=== PATIENT | male | born 1950 | race Caucasian/White ===

== ENCOUNTER 2019-04-24 00:58 | Inpatient (IN) | payer OTHER ==
[~2019-04-24] VITALS: Ht 177.8 cm; Wt 98.9 kg
[2019-04-24 00:58] VITALS: BP 150/69
[~2019-04-24 00:58] MED LIST: ASPI-1205 PO; CETI10TA71 PO; OXYC10TE14 PO; OXYC1TAB PO; PTU50 PO; WARF3TAB PO
--- NOTE | 2019-04-24 01:06 | NUR ---
PT BIB W/C TO ER BED 3
--- NOTE | 2019-04-24 01:10 | NUR ---
69 Y/O M BIB FAMILY FRIEND WITH C/O SOB AND LEG PAIN. 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 RALES AUSCULTATED. O2 SATURTION AT 95% RA. PT CHRONIC SMOKER, SMOKES 1-2 PACKS OF CIGARETTES DAILY. LEG PAIN STARTED 2 MONTHS AGO. OPEN WOUND NOTED TO LT OTOOLE MEASURING APPROXIMATELY 6CM X3 CM. WEEPING WOUNDS NOTED TO BLE. SKIN COOL TO TOUCH. PT PLACED IN GOWN AND ATTACHED TO MONITORING SYSTEM. BEDRAILS X2 UP. WILL CONTINUE TO MONITOR.
--- NOTE | 2019-04-24 01:15 | NUR ---
PT O2 SATURATION DROPPED TO 89%. PLACED ON 3L VIA NASAL CANNULA. O2 SATUATION AT 96%
[2019-04-24] MEDS ORDERED: NACL 0.9% 1,000 ML IV SCH (01:19)
[2019-04-24] MEDS ORDERED: cefTRIAXone 1,000 MG in DEXT 5% MINI-BAG PLUS 50 ML IV ONE (01:20)
[2019-04-24] MEDS ORDERED: MORPHINE SULFATE 4 MG/ML SYR IVP ONE (01:20)
--- NOTE | 2019-04-24 01:35 | NUR ---
EKG PERFORMED AT BEDSIDE
--- NOTE | 2019-04-24 01:38 | NUR ---
dr. austin bedside evaluating pt
--- NOTE | 2019-04-24 01:40 | NUR ---
BLOOD DRAWN AND WALKED TO LAB.
[2019-04-24] MEDS ORDERED: VERAPAMIL 5 MG/2 ML VIAL IVP ONE (01:45)
--- NOTE | 2019-04-24 01:45 | NUR ---
PT UNABLE TO PROVIDE URINE SPECIMEN AT THIS TIME. DR. AKHTAR MADE AWARE.
[2019-04-24] MEDS ORDERED: FUROSEMIDE 40 MG/4 ML VIAL IVP ONE (01:50)
[2019-04-24 02:03] LABS: RED CELL DISTRIBUTION WIDTH 24.4 % (11.6-13.7)
--- NOTE | 2019-04-24 02:15 | NUR ---
O2 SATURATION MAINTAINED AT 96% ON 3L VIA NC. WILL CONTINUE TO MONITOR
[2019-04-24] MEDS ORDERED: cefTRIAXone 1,000 MG VIAL ONE (02:16)
[2019-04-24 02:18] LABS: CARBON DIOXIDE 21.9 mmol/L (21-32); POTASSIUM 4.2 mmol/L (3.5-5.1)
[2019-04-24 02:19] LABS: ANION GAP 18.3 (8-16); CREATININE 1.4 mg/dL (0.7-1.3); TOTAL BILIRUBIN 1.2 mg/dL (0.0-1.0)
[2019-04-24 02:20] LABS: HEMATOCRIT 26.3 % (36-52); MEAN CORPUSCULAR HEMOGLOBIN 23 pg (27-31); MEAN CORPUSCULAR HGB CONC 31 g/dL (33-37); MEAN CORPUSCULAR VOLUME 76.4 fL (80-94); PLATELET COUNT (AUTO) 289 K/uL (140-450); RED BLOOD CELL COUNT(AUTO) 3.44 MIL/uL (4.20-6.10); WHITE BLOOD COUNT (AUTO) 11.8 K/uL (4.8-10.8)
[2019-04-24 02:21] LABS: BASOPHILS % (MANUAL) 1 % (0-2); EOSINOPHILS % (MANUAL) 0 % (0-4); LYMPHOCYTES % (MANUAL) 6 % (20-46); MONOCYTES % (MANUAL) 10 % (5-12)
--- NOTE | 2019-04-24 02:26 | NUR ---
LAB CALLED FOR CRITICAL LAB. LACTIC ACID 2.1. AWARE.
[2019-04-24] MEDS ORDERED: OMEP20TC12 PO (02:48)
[2019-04-24] MEDS ORDERED: FURO-570 PO (02:48)
[2019-04-24] MEDS ORDERED: POTA10TE30 PO (02:48)
[2019-04-24] MEDS ORDERED: CARV6.25 PO (02:48)
[2019-04-24] MEDS ORDERED: ATOR40TA PO (02:48)
--- NOTE | 2019-04-24 02:53 | NUR ---
RAD AT BEDSIDE.
--- NOTE | 2019-04-24 03:03 | NUR ---
URINE SPECIMEN COLLECTED.
--- NOTE | 2019-04-24 03:04 | NUR ---
PT C/O UNCHANGED PAIN. DR. AKHTAR NOTIFIED.
[2019-04-24] MEDS ORDERED: MORPHINE SULFATE 4 MG/ML SYR IM ONE (03:10)
[2019-04-24] MEDS ORDERED: DOCUSATE SODIUM 100 MG GELCAP PO PRN (03:25)
[2019-04-24] MEDS ORDERED: ONDANSETRON 4 MG/2 ML VIAL IM/IVP PRN (03:25)
[2019-04-24] MEDS ORDERED: ACETAMINOPHEN 325 MG TAB PO PRN (03:25)
[2019-04-24 03:30] LABS: APPEARANCE,URINE CLEAR (CLEAR); BILIRUBIN,URINE NEGATIVE (NEGATIVE); BLOOD, URINE NEGATIVE (NEGATIVE); COLOR,URINE YELLOW (YELLOW); LEUKOCYTE ESTERASE ,URINE NEGATIVE (NEGATIVE); NITRITE, URINE NEGATIVE (NEGATIVE); PH,URINE 5.5 (5.0-9.0); UGLUCOSE NEGATIVE (NEGATIVE)
[2019-04-24 03:40] LABS: BARBITURATE, URINE NEG. ng/ml (NEG <=200); BENZODIAZEPINE, URINE NEG. ng/mL (NEG <=200); CANNABINOID, URINE NEG. ng/mL (NEG <=50); COCAINE, URINE NEG. ng/mL (NEG <=300); OPIATE, URINE NEG. ng/mL (NEG <=2000); PHENCYCLIDINE SCREEN,URINE NEG. ng/mL (NEG <=25)
--- NOTE | 2019-04-24 03:45 | NUR ---
PT REPORTS DECREASED PAIN.
[2019-04-24 03:52] LABS: WBC,URINE 0-5 /HPF (0-5)
[2019-04-24 03:53] LABS: HYALINE CASTS, URINE 0-2 /LPF (None Seen); RBC,URINE 0-5 /HPF (0-5)
[2019-04-24] MEDS ORDERED: ALBUTEROL SULFATE/IPRATROPIU 3 ML SOL IH PRN (04:00)
[2019-04-24 04:01] LABS: CHOL/HDL RATIO 1.8 (1-4.5); MAGNESIUM 1.8 mg/dL (1.8-2.4); PHOSPHORUS 2.8 mg/dL (2.5-4.9); THYROID STIMULATING HORMONE 1.13 uIU/mL (0.34-3.74)
[2019-04-24 04:20] VITALS: BP 144/63
--- NOTE | 2019-04-24 04:20 | NUR ---
RECEIVED PT FROM ED; LUCILLE PALOMARES PT AWAKE ALERT ORIENTED X 4 BUT PT ANXIOUS DUE TO FEELING OF ITCHINESS ALL OVER BODY. PT SCREAMING IN PAIN, AND PHYSICALLY SCRATCHING HIMSELF.PT UNCOOPERATIVE. PT NOT A GOOD INFORMANT DUE TO ANXIETY. PLACED ON BED COMFORTABLY. MRSA SWAB DONE. PLACED ON FALL RISK. PT TRYING TO GET UP DUE TO ANXIETY.PLACED ON LOW BED.
--- NOTE | 2019-04-24 04:30 | NUR ---
Patient will be admitted to care of Dr. Saavedra. Admited to [facility]. Will go to room 123A. Belongings list completed. Report to GLENN York. Transfer of care at this time.
--- NOTE | 2019-04-24 05:00 | NUR ---
DR. KENT WAS AT BEDSIDE TO INTERVIEW PT, DID THE HISTORY AND PHYSICAL BUT BECAUSE OF ITCHINESS AND ANXIETY . I COULD NOT GET A GOOD INFORMATION ALSO ON THE PT JUST BITS ON INFORMATION BECAUSE OF ANXIETY.
--- NOTE | 2019-04-24 05:01 | NUR ---
DR. KENT AWARE OF ITCHINESS AND WILL ORDER MEDS. WILL CARRY IT OUT.
[2019-04-24] MEDS: NACL 0.9% 1,000 ML IV SCH (05:19)
--- NOTE | 2019-04-24 05:27 | NUR ---
GIVEN BENADRYL ORDERED SEVERE ITCHINESS NOTED
[2019-04-24] MEDS: MORPHINE SULFATE 2 MG/ML SYR IVP PRN ×2 (05:54→10:24)
--- NOTE | 2019-04-24 05:54 | NUR ---
DR. KENT WAS AT BEDSIDE WITH PT AND TALKED TO PT, ORDERED ME TO GIVE THE MORPHINE.CARRIED OUT VERBAL ORDER
[2019-04-24] MEDS ORDERED: diphenhydrAMINE 50 MG/ML VIAL IVP SCH (06:00)
--- NOTE | 2019-04-24 06:00 | NUR ---
DR. KWONG AND DR. KENT AGAIN AT BEDSIDE ASSESSING PATIENT. PATIENT TAKING OFF HIS CLOTHES. AND TAKING OFF THE WARDROBE COORDINATOR LEADS. INFORMED THE PT RISKS AND BENEFITS. ITCHINESS STILL PRESENT
[2019-04-24] MEDS: ALBUTEROL SULFATE/IPRATROPIU 3 ML SOL IH SCH ×3 (07:20→19:00)
--- NOTE | 2019-04-24 07:20 | NUR ---
PATIENT ENDORSED TO NEXT SHIFT FOR CONTINUITY OF CARE, PT HAD NO CLOTHES OWN, EXCEPT FOR A THIN SHEET ON HIS BODY,HE KEEPS TAKING OFF HIS GOWN AFTER WE FIX IT. PT STILL HAS ITCHINESS BUT HAS CALMED DOWN COMPARED EARLIER. NO ORDER FOR ISOLATION PLACED BY
--- NOTE | 2019-04-24 07:21 | NUR ---
RECEIVED REPORT FROM LUNCHROOM FOOD SERVICE SUPERVISOR NURSE. PATIENT LYING DOWN IN BED, COMPLAINS OF GENERALIZED ITCHING, O2 3L/MIN VIA NC ON BUT PATIENTS KEEPS TAKING IT OFF, KEEPS TAKING OFF GOWN, BLANKETS, AND TELE BOX. AAOX2, CONFUSED. IV SITE INTACT, PATENT AND INFUSING IVF PER MD ORDERS. REVIEWED PLAN OF CARE WITH PATIENT. UNABLE TO COMPREHEND. REINFORCEMENT NEEDED. SAFETY MEASURES IN PLACE, CALL LIGHT WITHIN REACH. WILL CONTINUE TO MONITOR.
[2019-04-24 08:00] VITALS: BP 165/74
[2019-04-24] MEDS ORDERED: LORazepam 2 MG/ML VIAL IM/IVP PRN (09:00)
[2019-04-24] MEDS ORDERED: FUROSEMIDE 40 MG/4 ML VIAL IVP SCH (09:00)
[2019-04-24] MEDS: CARVEDILOL 6.25 MG TAB PO SCH ×2 (10:24→21:16)
[2019-04-24] MEDS: ATORVASTATIN 20 MG TAB PO SCH (10:24)
--- NOTE | 2019-04-24 11:00 | NUR ---
PATIENT KEEPS REMOVED TELE BOX AND OXYGEN, MD AWARE. GETTING ULTRASOUND DONE. WILL CONTINUE TO MONITOR.
[2019-04-24] MEDS ORDERED: THERAHONEY GEL 42.5 GM TP SCH (11:25)
[2019-04-24] MEDS ORDERED: THERAHONEY GEL 42.5 GM TP PRN ×2 (11:25→11:35)
[2019-04-24 12:00] VITALS: BP 149/57
--- NOTE | 2019-04-24 13:00 | NUR ---
PATIENT PULLED OUT IV LINE. ECHOCARDIOGRAM BEING COMPLETED. WILL INSERT NEW IV LINE LATER.
[2019-04-24] MEDS ORDERED: MORPHINE SULFATE 2 MG/ML SYR IVP PRN (13:15)
--- NOTE | 2019-04-24 13:40 | NUR ---
PT IS COMBATIVE PULLING OUT IV AND YELLING AT STAFF NO HHN GIVEN
--- NOTE | 2019-04-24 14:19 | NUR ---
PATIENT HAS BEEN SCREENED AND CATEGORIZED MODERATE NUTRITION RISK. PATIENT WILL BE SEEN WITHIN 3-5 DAYS OF ADMISSION. 04/27/19 - 04/29/19 NAVI WARD MBA, RD
[2019-04-24 16:00] VITALS: BP 140/63
--- NOTE | 2019-04-24 16:00 | NUR ---
SPONGE BATH GIVEN. CONDITION UNCHANGED. WILL CONTINUE TO MONITOR.
--- NOTE | 2019-04-24 18:00 | NUR ---
NEW IV LINE INSERTED ON LEFT FOREARM #22 ON SECOND ATTEMPT. PATIENT TOLERATED WELL. WILL CONTINUE TO MONITOR.
--- NOTE | 2019-04-24 19:01 | NUR ---
went in the room to give patient a breathing tx. pt refused and claims hes sleepy. Sat 98%. on RA. b/s were clear. will cont. to monitor
--- NOTE | 2019-04-24 19:20 | NUR ---
RECEIVED BEDSIDE REPORT FROM DAY SHIFT NURSE. PATIENT IS SLEEPING AROUSABLE BY NAME AND TOUCH. RESPIRATION EVEN UNLABORED ON 3L O2 NC. NO DISTRESS NOTED. SKIN IS WARM AND DRY. IV PATENT AND INTACT. BILATERAL LOWER EXTREMITIES WOUND NOTED. PLAN OF CARE DISCUSSED. ALL SAFETY MEASURES IN PLACE. BED IS AT LOW POSITION. CALL LIGHT WITHIN REACH AND VERBALIZES ITS USE. WILL CONTINUE TO MONITOR.
--- NOTE | 2019-04-24 19:28 | NUR ---
GAVE REPORT TO TEST EQUIPMENT MECHANIC NURSE FOR CONTINUITY OF CARE. PATIENT IN STABLE CONDITION.
[2019-04-24 20:00] VITALS: BP 166/64
--- NOTE | 2019-04-24 20:00 | NUR ---
INITIAL ASSESSMENT DONE. VITALS WERE TAKEN. HELPED PATIENT CHANGED TO GOWN. PATIENT REFUSED TO PUT HIS OXYGEN MASK. EDUCATED THE RISK AND BENEFITS STILL REFUSED. WILL CONTINUE TO MONITOR.
[2019-04-24] MEDS: FUROSEMIDE 40 MG/4 ML VIAL IVP SCH (21:17)
--- NOTE | 2019-04-24 21:20 | NUR ---
ALL SCHEDULED MEDS WERE GIVEN PER ORDER. NO ASE NOTED. WILL CONTINUE TO MONITOR.
--- NOTE | 2019-04-24 22:37 | NUR ---
PATIENT WOKE UP FROM HUNGER. PROVIDED SANDWICH AND PUDDING. WILL CONTINUE TO MONITOR.
[2019-04-24] MEDS ORDERED: CLINDAMYCIN 600 MG/4 ML VIAL ONE (23:23)
[2019-04-24] MEDS: HYDROcodone/APAP 5/325 MG 1 TAB TAB PO PRN (23:31)
[2019-04-24] MEDS ORDERED: NACL 0.9% 500 ML IV SCH (23:55)
[2019-04-25] VITALS: BP 126/50
[2019-04-25] MEDS: CLINDAMYCIN 300 MG in DEXTROSE 5% 50 ML IV SCH ×2 (00:03→05:01)
[2019-04-25] MEDS ORDERED: cefTRIAXone 1,000 MG VIAL ONE (01:50)
--- NOTE | 2019-04-25 02:30 | NUR ---
CHECKED PATIENT. PATIENT SLEEPING RESPIRATION EVEN UNLABORED ON 2L NC O2. NO DISTRESS NOTED. WILL CONTINUE TO MONITOR.
[2019-04-25 04:00] VITALS: BP 141/61
[2019-04-25] MEDS: MORPHINE SULFATE 2 MG/ML SYR IVP PRN ×3 (04:00→17:46)
[2019-04-25] MEDS: NACL 0.9% 1,000 ML IV SCH (04:00)
--- NOTE | 2019-04-25 04:01 | NUR ---
PATIENT WOKE UP FROM PAIN 9/10. PATIENT IS MOANING AND RESTLESS. PRN PAIN MED ADMINISTERED PER ORDER. NO DISTRESS NOTED. VITALS TAKEN. PATIENT IN STABLE CONDITION WILL CONTINUE TO MONITOR
[2019-04-25] MEDS ORDERED: CLINDAMYCIN 600 MG/4 ML VIAL ONE (04:54)
--- NOTE | 2019-04-25 05:00 | NUR ---
PATIENT COMPLAINED OF ITCHINESS ALL OVER THE BODY. PRN BENADRYL GIVEN PER ORDER. WILL CONTINUE TO MONITOR
--- NOTE | 2019-04-25 07:16 | NUR ---
ENDORSED PATIENT IN DAY SHIFT NURSE. PATIENT IN STABLE CONDITION
--- NOTE | 2019-04-25 07:29 | NUR ---
RECEIVED BEDSIDE REPORT FROM PM RN PT APPEARS STABLE AND IN NO APPARENT DISTRESS. DISTRICT ATTORNEY AT BEDSIDE PERFORMING MORNING LAB DRAWS PT ON 2L 02 VIA NASAL CANULA. WILL CONTINUE TO MONITOR.
[2019-04-25] MEDS: ALBUTEROL SULFATE/IPRATROPIU 3 ML SOL IH SCH ×3 (07:32→20:22)
[2019-04-25 07:47] LABS: HEMATOCRIT 26.9 % (36-52); HEMOGLOBIN 8.2 g/dL (12.0-18.0); MEAN CORPUSCULAR HEMOGLOBIN 24 pg (27-31); MEAN CORPUSCULAR HGB CONC 30 g/dL (33-37); MEAN CORPUSCULAR VOLUME 77.6 fL (80-94); PLATELET COUNT (AUTO) 330 K/uL (140-450); RED BLOOD CELL COUNT(AUTO) 3.47 MIL/uL (4.20-6.10); RED CELL DISTRIBUTION WIDTH 24.5 % (11.6-13.7); WHITE BLOOD COUNT (AUTO) 8.8 K/uL (4.8-10.8)
[2019-04-25 07:50] LABS: ANION GAP 12.7 (8-16); CARBON DIOXIDE 26.9 mmol/L (21-32); CREATININE 1.5 mg/dL (0.7-1.3); POTASSIUM 3.6 mmol/L (3.5-5.1)
[2019-04-25 08:04] LABS: BASOPHILS % (MANUAL) 0 % (0-2); EOSINOPHILS % (MANUAL) 0 % (0-4); LYMPHOCYTES % (MANUAL) 7 % (20-46); MONOCYTES % (MANUAL) 16 % (5-12)
[2019-04-25 08:07] LABS: T4 (THYROXINE) 6.3 ug/dL (4.5-12.0)
[2019-04-25 08:45] VITALS: BP 122/47
[2019-04-25] MEDS: ATORVASTATIN 20 MG TAB PO SCH (08:58)
[2019-04-25] MEDS: CARVEDILOL 6.25 MG TAB PO SCH ×2 (08:58→20:55)
[2019-04-25] MEDS: FUROSEMIDE 40 MG/4 ML VIAL IVP SCH ×2 (08:58→20:56)
--- NOTE | 2019-04-25 09:15 | NUR ---
FREQUENT ROUNDING ON PT PT APPEARS STABLE AND IN NO APPARENT DISTRESS. ALL SAFETY MEASURES ARE IN PLACE WILL CONTINUE TO MONITOR.
[2019-04-25] MEDS ORDERED: CYCLOBENZAPRINE 10 MG TAB PO PRN (09:20)
--- NOTE | 2019-04-25 11:20 | NUR ---
FREQUENT ROUNDING ON PT PT APPEARS STABLE AND IN NO APPARENT DISTRESS. ALL SAFETY MEASURES ARE IN PLACE WILL CONTINUE TO MONITOR
--- NOTE | 2019-04-25 11:45 | NUR ---
podiatry md at bedside performing bilateral lower extremity wound care. pt awake in bed pt appears stable and in no apparent distress. all safety measures are in place will continue to monitor
[2019-04-25] MEDS ORDERED: PIPERACILLIN/TAZOBACTAM 3.375 GM in DEXTROSE 5% 50 ML IV SCH (12:00)
[2019-04-25 12:30] VITALS: BP 133/67
--- NOTE | 2019-04-25 13:10 | NUR ---
Licensed Psychologist Note: Basic Screen: Yes High Risk DC Screen Homeworth: PAMELA SHEN Home Relationship: ROOMMATE/FRIEND Pre-Admission Living Arrangements: Lives with Other Prior ADL Independent Current Home Health Name/Tel: N/A Current DME/02 Name/Tel: N/A Current Hospice Name/Tel: N/A Current Dialysis Name/Tel: N/A Healthcare Decision Maker: Patient Advance Directive No Patient/Family Have Educational Needs No Discipline: Case Mgt/Social Svcs Tentative Discharge Plan/Destination: No Needs Identified Will require assistance post discharge: No Referred to Tank Car Cleaner: No Tentative Discharge Plan Summary: Patient is a 69-year-old male admitted for CHF exacerbation. Patient has PMHX of congestive heart failure, atrial fibrillation, hypertension, and chronic venous ulcers. Patient was admitted from home. Patient was asleep when SW attempted to conduct assessment. SW contacted emergency contact/roommate Pamela Shen to complete assessment [phone]. Per Pamela, patient has no mental health history and no substance abuse history. Pamela stated that he moved in with patient, and patient's tentative discharge plan is to return home. No further needs identified. Signature: JUANI Bhatia Date: Apr 25, 2019 Time: 13:08
--- NOTE | 2019-04-25 13:46 | NUR ---
FREQUENT ROUNDING ON PT PT APPEARS STABLE AND IN NO APPARENT DISTRESS. ALL SAFETY MEASURES ARE IN PLACE WILL CONTINUE TO MONITOR.
--- NOTE | 2019-04-25 15:47 | NUR ---
PT SCRATCHED ARM WHILE AMBULATING THROUGHOUT HIS ROOM PT HAS 2.5CM SKIN TEAR ON RIGHT FOREARM. TOOK WOUND PHOTO AND CLEANED PLACED VERSATILE ON ARM.
[2019-04-25 16:45] VITALS: BP 145/68
--- NOTE | 2019-04-25 17:34 | NUR ---
FREQUENT ROUNDING ON PT PT APPEARS STABLE AND IN NO APPARENT DISTRESS. ALL SAFETY MEASURES ARE IN PLACE WILL CONITNUE TO MONITOR
[2019-04-25] MEDS: PIPERACILLIN/TAZOBACTAM 3.375 GM in DEXTROSE 5% 50 ML IV SCH ×2 (17:45→23:54)
--- NOTE | 2019-04-25 19:28 | NUR ---
ENDORSED PT TO PM RN PT APPEARS STABLE AND IN NO APPARENT DISTRESS. ALL SAFETY MEASURES ARE IN PLACE. PT ON 2L 02 VIA NASAL CANULA. PT IVF INFUSING IV SITE INFUSING IV SITE PATENT SHOWS NO SIGNS OF INFILTRATION OR INFLAMMATION.
--- NOTE | 2019-04-25 19:30 | NUR ---
RECEIVED PT IN STABLE CONDITION FROM AM NURSE FOR CONTINUITY OF CARE. AWAKE,ALERT AND ORIENTED X4. REFUSED TELE MONITOR AT THIS TIME. SITTING ,STANDING ALTERNATELY IN THE ROOM. WITH IVF INFUSING WELL ON THE LT AC #20. CLEAR AND PATENT. BOTH LOWER LEG WITH DRESSING ON. FREQ ROUNDS NEEDED. BED ON LOW POSITION AND CALL LIGHT PLACED WITHIN EASY REACH. WILL CONTINUE TO MONITOR.
[2019-04-25 20:00] VITALS: BP 145/44
--- NOTE | 2019-04-25 20:22 | NUR ---
PATIENT REFUSED BREATHING TREATMENT AND ASSESSMENT AT THIS TIME. NO ACUTE RESPIRATORY DISTRESS NOTED. WILL CONTINUE TO MONITOR.
--- NOTE | 2019-04-25 21:00 | NUR ---
PT HAS BEEN GETTING UP GOING TO THE BATHROOM. NEEDS ATTENDED. DUE MEDS TO BE GIVEN TO PT.
--- NOTE | 2019-04-25 22:30 | NUR ---
ABLE TO CONNECT TELE MONITOR TO PT. - CONTROLLED A FIB.
[2019-04-25] MEDS: HYDROcodone/APAP 5/325 MG 1 TAB TAB PO PRN (22:39)
--- NOTE | 2019-04-26 | NUR ---
PT REFUSED TO HAVE VITAL SIGNS TAKEN AND TO CONTINUE THE TELE MONITOR. HE SAID HE WANTS TO GO TO SLEEP.
[2019-04-26] MEDS: MORPHINE SULFATE 2 MG/ML SYR IVP PRN ×2 (01:25→09:24)
--- NOTE | 2019-04-26 02:10 | NUR ---
IV ACCESS LT FA G#20 INFILTRATED. DISCONTINUED. THEN A NEW IV ACCESS STARTED ON THE RT WRIST g22. CLEAR AND PATENT.
--- NOTE | 2019-04-26 02:40 | NUR ---
P[T REMOVED DRESSING ON BOTH LEGS. DRESSING CHANGED PER INSTRUCTION WITH THERA HONEY ON LT LEG.
[2019-04-26] MEDS: NACL 0.9% 1,000 ML IV SCH (02:58)
--- NOTE | 2019-04-26 04:00 | NUR ---
PT REFUSED TELE MONITOR AND VITAL SIGNS . DR. BRADLEY ,RESIDENT ON DUTY MADE AWARE.
--- NOTE | 2019-04-26 04:50 | NUR ---
PT SLEEPING WELL FINALLY AT THIS TIME. WILL CONTINUE TO MONITOR.
[2019-04-26] MEDS: PIPERACILLIN/TAZOBACTAM 3.375 GM in DEXTROSE 5% 50 ML IV SCH (05:35)
--- NOTE | 2019-04-26 06:15 | NUR ---
HS BEEN GETTING UP TO THE BATHROOM USING CANE WITH STANDBY ASSIST. INSTRUCTED TO ALWAYS CALL BEFORE GETTING UP DUE TO HIS WEAKNESS FROM THE LEG PAIN. NEEDS REINFORCEMENT.
[2019-04-26] MEDS: HYDROcodone/APAP 5/325 MG 1 TAB TAB PO PRN (06:36)
[2019-04-26 06:45] LABS: ANION GAP 12.3 (8-16); CARBON DIOXIDE 26.8 mmol/L (21-32); CREATININE 1.5 mg/dL (0.7-1.3); POTASSIUM 3.1 mmol/L (3.5-5.1)
[2019-04-26] MEDS: ALBUTEROL SULFATE/IPRATROPIU 3 ML SOL IH SCH (06:49)
[2019-04-26 06:58] LABS: BASOPHILS # (AUTO) 0.1 K/uL (0.00-0.22); BASOPHILS % (AUTO) 1.1 % (0.0-2.0); EOSINOPHILS % (AUTO) 0.4 % (0.0-4.0); HEMOGLOBIN 7.6 g/dL (12.0-18.0); LYMPHOCYTES # (AUTO) 0.8 K/uL (2.0-11.5); LYMPHOCYTES % (AUTO) 8.4 % (20.5-51.1); MEAN CORPUSCULAR HEMOGLOBIN 24 pg (27-31); MEAN CORPUSCULAR HGB CONC 32 g/dL (33-37); MEAN CORPUSCULAR VOLUME 76.4 fL (80-94); MONOCYTES # (AUTO) 1.9 K/uL (0.8-1.0); MONOCYTES % (AUTO) 21.6 % (1.7-9.3); NEUTROPHILS # (AUTO) 6.2 K/uL (1.8-7.7); NEUTROPHILS % (AUTO) 68.5 % (42.2-75.2); PLATELET COUNT (AUTO) 262 K/uL (140-450); RED BLOOD CELL COUNT(AUTO) 3.14 MIL/uL (4.20-6.10); RED CELL DISTRIBUTION WIDTH 23.8 % (11.6-13.7)
--- NOTE | 2019-04-26 07:10 | NUR ---
RECEIVED BEDSIDE SHIFT REPORT, PATIENT IS SLEEPING IN BED, IN STABLE CONDITION AT THIS TIME.
--- NOTE | 2019-04-26 07:11 | NUR ---
RECEIVED BEDSIDE SHIFT REPORT, PATIENT IS SLEEPING IN BED, IN STABLE CONDITION AT THIS TIME.
--- NOTE | 2019-04-26 07:11 | NUR ---
ENDORSED PT IN STABLE CONDITION TO AM NURSE FOR CONTINUITY OF CARE.
[2019-04-26] MEDS: ATORVASTATIN 20 MG TAB PO SCH (09:12)
[2019-04-26] MEDS: CARVEDILOL 6.25 MG TAB PO SCH (09:12)
[2019-04-26] MEDS: FUROSEMIDE 40 MG/4 ML VIAL IVP SCH (09:13)
--- NOTE | 2019-04-26 09:15 | NUR ---
PATIENT REQUESTING TO LEAVE HOSPITAL, STATES THE DOCTORS CAME AND SAID HE WAS GOING ON, PATIENT WALKING DOWN THE FOX, PATIENT ASSISTED BACK IN TO HIS ROOM AND EDUCATED ON FALL RISK SAFETY, PATIENT REQUESTING TO SIT IN A NEAR BY CHAIR TO WAIT FOR ME TO DO DISCHARGE FORMS.
[2019-04-26] MEDS: POTASSIUM CHLORIDE 10 MEQ TABER PO SCH ×2 (09:16→10:49)
--- NOTE | 2019-04-26 09:25 | NUR ---
ACKNOWLEDGED DISCHARGE ORDER FROM DR MYERS, DISCHARGE FORMS WILL BE COMPLETED AT THIS TIME. PATIENT IN STABLE CONDITION SITTING IN A CHAIR NEAR HIS ROOM (DOORWAY).
--- NOTE | 2019-04-26 11:15 | NUR ---
LABS AT THE BEDSIDE, TO DO A REPEAT BMP FOR POTASSIUM LEVELS. PATIENT YELLING FROM HIS ROOM REQUESTING TO LEAVE THE HOSPITAL. PATIENT PROVIDED COFFEE AND STATES HE WILL WAIT FOR ONLY 10 MINS. PATIENT DRESSED AND READY FOR DISCHARGE.
--- NOTE | 2019-04-26 11:20 | NUR ---
PATIENT EDUCATED ON DISCHARGE INSTRUCTIONS, PATIENT VERBALIZED UNDERSTANDING OF PLAN OF CARE, DISCHARGED FORMS WERE SIGNED AT THIS TIME.
--- NOTE | 2019-04-26 11:25 | NUR ---
PATIENTS ROOM MATE HERE TO LOCOMOTIVE OPERATOR PATIENT, PATIENT GATHERED HIS BELONGINGS, ALREADY CHANGED, ID BAND WITH DISCONTINUED AT THIS TIME. IV WAS ALSO DISCONTINUED AND REMOVED WITH LUMEN IN TACT, NO BLEEDING, REDNESS OR SWELLING NOTED. ALL QUESTIONS PERTAINING TO HIS CARE WAS ANSWERED. POTASSIUM LEVELS NORMAL AT THIS TIME, PATIENT IS STABLE, GAIT IS UNSTEADY AND ASSISTED INTO A WHEELCHAIR TO BE ESCORTED TO THE LOBBY, PATIENT WAS DISCHARGED AT THIS TIME.
[2019-04-26 11:55] LABS: ANION GAP 13.7 (8-16); CARBON DIOXIDE 24.4 mmol/L (21-32); CREATININE 1.4 mg/dL (0.7-1.3); POTASSIUM 4.1 mmol/L (3.5-5.1)
== END 2019-04-26 11:40 | disposition home or self-care (01) | DRG 291 ==
LOC: MED 00:58 → MTU 03:24
PROVIDERS: ADMIT General Practice; ATTEND General Practice
DX: I11.0 Hypertensive heart disease with heart failure (principal); N17.0 Acute kidney failure with tubular necrosis; J98.11 Atelectasis; L97.929 Non-pressure chronic ulcer of unspecified part of left lower leg with unspecified severity; E87.1 Hypo-osmolality and hyponatremia; E87.6 Hypokalemia; F19.10 Other psychoactive substance abuse, uncomplicated; E66.9 Obesity, unspecified; I48.91 Unspecified atrial fibrillation; F15.10 Other stimulant abuse, uncomplicated; I50.43 Acute on chronic combined systolic (congestive) and diastolic (congestive) heart failure; F17.210 Nicotine dependence, cigarettes, uncomplicated; I49.3 Ventricular premature depolarization; I45.10 Unspecified right bundle-branch block; E78.5 Hyperlipidemia, unspecified; I73.9 Peripheral vascular disease, unspecified; I87.2 Venous insufficiency (chronic) (peripheral); Z79.899 Other long term (current) drug therapy; Z79.82 Long term (current) use of aspirin; Z91.14 Patient's other noncompliance with medication regimen; Z68.31 Body mass index [BMI] 31.0-31.9, adult
CPT/HCPCS: 36415; 36600; 71045; 73590; 73620; 76881; 80048; 80053; 80305; 81001; 82550; 82803; 83036; 83605; 83735; 83880; 84100; 84436; 84443; 84484; 85025; 87040; 87070; 87075; 87081; 87086; 87186; 87205; 93005; 93925; 93970; 94640; 96365; 96375; 96376; 99285; A4649; C1758; J0696; J1200; J1644; J1940; J2270; J2543; J3490; J7030; J7060; J7620; Q0092; Q0163

== ENCOUNTER 2019-05-15 18:53 | Inpatient (IN) | payer OTHER ==
[~2019-05-15] VITALS: Ht 170.2 cm; Wt 101.6 kg
[~2019-05-15 18:53] MED LIST changes: -ASPI-1205 PO; +ATOR40TA PO; +CARV6.25 PO; +FURO-570 PO; +OMEP20TC12 PO; -OXYC10TE14 PO; -OXYC1TAB PO; +POTA10TE30 PO; -PTU50 PO; -WARF3TAB PO
[2019-05-15 18:56] VITALS: BP 127/73
--- NOTE | 2019-05-15 19:00 | NUR ---
69 Y/O MALE PRESENTS TO ED, POPEYE FROM HOME. C/O SOB AND DIFFICULTY BREATHING. PT HAS HX OF CHF, PLACED ON 5 L OF O2 VIA NC. PT SPO2 AT 97%. PT COMPLIANT WITH LASIX AT HOME. PT STATES HAVING CHEST PAIN RELATED TO SOB. +1 PITTING EDEMA NOTED ON ALL EXTREMITIES. PT HAS WOUND ULCERS ON BILAT LOWER EXTREMITY. PT C/O PAIN ON GENITAL REGION. PT STATES PAIN IS 10/10. PLACED ON MONITOR. ERMD MADE AWARE. WILL CONTINUE TO MONITOR.
[2019-05-15] MEDS ORDERED: FUROSEMIDE 40 MG/4 ML VIAL IVP ONE (19:15)
[2019-05-15] MEDS ORDERED: cefTRIAXone 1,000 MG in DEXT 5% MINI-BAG PLUS 50 ML IV ONE (19:15)
[2019-05-15] MEDS ORDERED: cefTRIAXone 1,000 MG VIAL ONE (19:24)
--- NOTE | 2019-05-15 20:05 | NUR ---
URINE COLLECTED AND SENT TO LAB AT THIS TIME
[2019-05-15 20:08] LABS: EOSINOPHILS % (AUTO) 0.2 % (0.0-4.0); LYMPHOCYTES # (AUTO) 0.9 K/uL (2.0-11.5); LYMPHOCYTES % (AUTO) 5.1 % (20.5-51.1); MEAN CORPUSCULAR HEMOGLOBIN 23 pg (27-31); MEAN CORPUSCULAR HGB CONC 30 g/dL (33-37); MEAN CORPUSCULAR VOLUME 76.8 fL (80-94); MONOCYTES % (AUTO) 11.5 % (1.7-9.3); NEUTROPHILS # (AUTO) 14.6 K/uL (1.8-7.7); NEUTROPHILS % (AUTO) 83.2 % (42.2-75.2); PLATELET COUNT (AUTO) 197 K/uL (140-450); RED CELL DISTRIBUTION WIDTH 24.2 % (11.6-13.7); WHITE BLOOD COUNT (AUTO) 17.6 K/uL (4.8-10.8)
[2019-05-15 20:09] LABS: CARBON DIOXIDE 28.9 mmol/L (21-32); CREATININE 1.2 mg/dL (0.7-1.3); POTASSIUM 3.9 mmol/L (3.5-5.1)
[2019-05-15 20:13] LABS: HEMOGLOBIN 6.8 g/dL (12.0-18.0)
[2019-05-15 20:24] LABS: ALBUMIN 2.8 g/dL (3.4-5.0); TOTAL BILIRUBIN 1.3 mg/dL (0.0-1.0)
--- NOTE | 2019-05-15 20:43 | NUR ---
BLEEDING NOTED ON LEFT LEG ULCER. BLEEDING CONTROLLED BY GAUZE. ERMD AWARE. WILL CONTINUE TO MONITOR.
[2019-05-15] MEDS ORDERED: MORPHINE SULFATE 4 MG/ML SYR IVP ONE (20:50)
[2019-05-15] MEDS ORDERED: NACL 0.9% 1,000 ML IV SCH (21:11)
[2019-05-15] MEDS ORDERED: ONDANSETRON 4 MG/2 ML VIAL IM/IVP PRN (21:15)
[2019-05-15] MEDS ORDERED: ACETAMINOPHEN 325 MG TAB PO PRN (21:15)
[2019-05-15] MEDS ORDERED: DOCUSATE SODIUM 100 MG GELCAP PO PRN (21:15)
[2019-05-15] MEDS ORDERED: MORPHINE SULFATE 2 MG/ML SYR IVP PRN (21:15)
[2019-05-15 21:39] LABS: APPEARANCE,URINE CLEAR (CLEAR); BILIRUBIN,URINE NEGATIVE (NEGATIVE); BLOOD, URINE NEGATIVE (NEGATIVE); COLOR,URINE YELLOW (YELLOW); LEUKOCYTE ESTERASE ,URINE NEGATIVE (NEGATIVE); NITRITE, URINE NEGATIVE (NEGATIVE); UGLUCOSE NEGATIVE (NEGATIVE)
[2019-05-15 21:48] LABS: BARBITURATE, URINE NEG. ng/ml (NEG <=200); BENZODIAZEPINE, URINE NEG. ng/mL (NEG <=200); CANNABINOID, URINE NEG. ng/mL (NEG <=50); COCAINE, URINE NEG. ng/mL (NEG <=300); OPIATE, URINE NEG. ng/mL (NEG <=2000); PHENCYCLIDINE SCREEN,URINE NEG. ng/mL (NEG <=25)
--- NOTE | 2019-05-15 22:00 | NUR ---
RECEIVED REPORT FROM ED RN FOR PT'S CONTINUITY OF CARE. PT IS AAOX4, IS ON RETREADER, AFIB ON TELE, ON 5L O2 OXYMIZER, HAS RIGHT AC 22G SALINE LOCK, HAS BLE +1 PITTING EDEMA, BLE ULCERS/POSS CELLULITIS, LEFT ARM SKIN TEARS, PHOTOGRAPHS TAKEN AND CHARTED. PT SCREAMING AND YELLING, C/O SEVERE BLE PAIN. ORIENTED PT TO HEEL COVERER ROUTINE, AND PLAN OF CARE. PT VERBALIZED UNDERSTANDING. SAFETY MEASURES IN PLACE, AND CALL LIGHT IS WITHIN REACH. WILL MONITOR PT THROUGHOUT SHIFT.
--- NOTE | 2019-05-15 22:00 | NUR ---
PT ADMITTED TO [facility] RM 127B. [place] [facility], STABLE CONDITION. REPORT GIVEN TO F[place] ELIZABETH. TRANSFER OF CARE AT THIS TIME.
[2019-05-15 22:05] VITALS: BP 134/70
[2019-05-15 22:12] LABS: FREE T4 (FREE THYROXINE) 1.09 ng/dL (0.76-1.46); MAGNESIUM 2.1 mg/dL (1.8-2.4); PHOSPHORUS 2.9 mg/dL (2.5-4.9); THYROID STIMULATING HORMONE 1.12 uIU/mL (0.34-3.74)
[2019-05-15 22:18] LABS: PROTHROMBIN TIME 13.2 secs (10.8-13.4)
[2019-05-15] MEDS: ACETAMINOPHEN 325 MG TAB PO SCH (23:23)
[2019-05-15] MEDS: MORPHINE SULFATE 2 MG/ML SYR IVP PRN (23:23)
--- NOTE | 2019-05-15 23:23 | NUR ---
ADMINISTERED SCHEDULED AND IVP PRN PAIN MEDICATIONS ORDERED, PRIOR TO BLOOD TRANSFUSION.
--- NOTE | 2019-05-15 23:25 | NUR ---
PRBC STARTED. PT TOLERATING IT WELL, NO REACTION NOTED. CXR AND XRAY OF TIBIA AND FIBULA DONE AT BEDSIDE. WILL CONTINUE TO MONITOR PT.
[2019-05-16] VITALS: BP 141/59
[2019-05-16] MEDS ORDERED: CARVEDILOL 6.25 MG TAB PO SCH
--- NOTE | 2019-05-16 00:15 | NUR ---
NEW IV INSERT: RIGHT WRIST 22G. RIGHT AC INFILTRATED.
--- NOTE | 2019-05-16 02:15 | NUR ---
PRBC TRANSFUSION ENDED. NO REACTION NOTED FROM TRANSFUSION. PT C/O SEVERE BLE PAIN, WILL MEDICATE PT.
[2019-05-16] MEDS ORDERED: FUROSEMIDE 20 MG TAB PO SCH ×2 (02:40)
[2019-05-16] MEDS: MORPHINE SULFATE 2 MG/ML SYR IVP PRN ×4 (03:09→21:07)
[2019-05-16] MEDS: LEVOFLOXACIN 750 MG/D5W PREMIX 150 ML IV SCH (03:09)
[2019-05-16] MEDS: ACETAMINOPHEN 325 MG TAB PO SCH ×3 (03:09→12:00)
--- NOTE | 2019-05-16 03:10 | NUR ---
ADMINISTERED SCHEDULED AND IVP PAIN MEDICATIONS ORDERED. PT TEACHING GIVEN. PT INTERMITTENTLY C/O SEVERE BLE PAIN.
[2019-05-16 04:00] VITALS: BP 130/78
[2019-05-16 04:11] LABS: HEMATOCRIT 21.8 % (36-52); MEAN CORPUSCULAR HEMOGLOBIN 24 pg (27-31); MEAN CORPUSCULAR HGB CONC 31 g/dL (33-37); MEAN CORPUSCULAR VOLUME 76.9 fL (80-94); PLATELET COUNT (AUTO) 161 K/uL (140-450); RED BLOOD CELL COUNT(AUTO) 2.83 MIL/uL (4.20-6.10); RED CELL DISTRIBUTION WIDTH 24.2 % (11.6-13.7); WHITE BLOOD COUNT (AUTO) 18.3 K/uL (4.8-10.8)
[2019-05-16 04:21] LABS: ANION GAP 6.5 (8-16); CARBON DIOXIDE 30.3 mmol/L (21-32); CREATININE 1.2 mg/dL (0.7-1.3); POTASSIUM 3.8 mmol/L (3.5-5.1)
--- NOTE | 2019-05-16 04:30 | NUR ---
RECEIVED CALL FROM [facility] (LAB), HGB 6.6, HCT 21.8. NOTIFIED MD, WILL ORDER ANOTHER UNIT OF PRBC.
[2019-05-16 04:31] LABS: HEMOGLOBIN 6.6 g/dL (12.0-18.0)
[2019-05-16 04:36] LABS: EOSINOPHILS % (MANUAL) 1 % (0-4); LYMPHOCYTES % (MANUAL) 8 % (20-46); MONOCYTES % (MANUAL) 13 % (5-12)
--- NOTE | 2019-05-16 04:55 | NUR ---
PT CURRENTLY SLEEPING WITH NO MORE INTERMITTENT SCREAMING IN PAIN. PT WAS CHANGED AND MADE COMFORTABLE AT 0430. AWAITING FROM LAB FOR THE AVAILABILITY OF THE NEXT PRBC UNIT.
--- NOTE | 2019-05-16 06:00 | NUR ---
CALLED LAB FOR 2ND UNIT OF PRBC UPDATE. PER LAB STAFF, THEY ARE STILL WORKING ON IT. MD AND ACCOUNTS PAYABLE TECHNICIAN AWARE.
--- NOTE | 2019-05-16 06:30 | NUR ---
PATIENT HAS BEEN SCREENED AND CATEGORIZED HIGH NUTRITION RISK. PATIENT WILL BE SEEN WITHIN 1-2 DAYS OF ADMISSION. 05/16/19-05/17/19 SANDIP GONZALEZ MS, RDN
--- NOTE | 2019-05-16 06:50 | NUR ---
MADAY FROM LAB CALLED TO INFORM PRBC 2ND UNIT IS READY. WILL ENDORSE TO AM SHIFT RN.
--- NOTE | 2019-05-16 07:46 | NUR ---
RECEIVED BEDSIDE REPORT FROM PM RN PT AWAKE IN BED PT APPEARS STABLE AND IN NO APPARENT DISTRESS. ALL SAFETY MEASURES ARE IN PLACE WILL CONTINUE TO MONITOR PT ON 3L 02 VIA OXIMIZER
[2019-05-16 08:15] VITALS: BP 113/59
[2019-05-16] MEDS: FUROSEMIDE 40 MG/4 ML VIAL IVP SCH (08:25)
[2019-05-16] MEDS: LACTOBACILLUS RHAMNOSUS GG 1 EACH CAP PO SCH (08:26)
[2019-05-16] MEDS: CARVEDILOL 6.25 MG TAB PO SCH ×2 (08:26→20:57)
[2019-05-16] MEDS: HYDROcodone/APAP 7.5/325 MG 1 TAB PO PRN (08:26)
[2019-05-16] MEDS: PANTOPRAZOLE 40 MG TABEC PO SCH (08:27)
[2019-05-16] MEDS ORDERED: PANTOPRAZOLE 40 MG TABEC PO SCH (09:00)
--- NOTE | 2019-05-16 09:00 | NUR ---
BLOOD TRANSFUSION STARTED PT AWAKE AND ALERT X4. PT ON TELE MONITORING. PT ON 5L 02 OXIMIZER. ALL SAFETY MEASURES ARE IN PLACE WILL CONTINUE TO MONITOR. PRE TRANSFUSION MEDICATIONS ADMINISTERED
--- NOTE | 2019-05-16 11:34 | NUR ---
SOCK DRIER AT BEDSIDE. PERFORMED WOUND ASSESSMENT. CANCELED ULTRASOUND VASCULAR OF BILATERAL LOWER EXTREMITIES SHE STATED HE HAD ONE 1 MONTH AGO AND WE DONT NEED ANOTHER
--- NOTE | 2019-05-16 11:48 | NUR ---
DISCHARGE PLANNING: A 69 Y/O MALE PATIENT FROM HOME, WHO CAME IN DUE TO SOB X 1 DAY. PAST MEDICAL HISTORY INCLUDE HTN, CHF AND A FIB. INITIAL DIAGNOSIS OF CHF EXACERBATION. CURRENT LABS INCLUDE WBC 18.3, H/H 6.6/21.8, NA/K 136/3.8, BUN/CREA 16/1.2. ON LEVAQUIN IV. CXR ON ADMISSION SHOWED ILD INTERSTITIAL PULMONARY EDEMA AND TRACE BILATERAL PLEURAL EFFUSIONS. CONSULT WITH DR Suzan LOMAS FOR CHF AND A FIB. BLOOD AND URINE C/S PENDING. DC PLAN TO HOME ONCE STABLE. Addendum: 05/17/19 at 1218 by Nohelia Munoz CM CURRENT LABS INCLUDE WBC 21.3, H/H 7.3/23.5, NA/K 137/3.9. UPPER EXTREMITY U/S AND VENOUS DOPPLER SHOWED NO DVT. LEG WOUND C/S PENDING. CARDIO AND PODIATRY CONSULTS IN PLACE. STILL ON LEVAQUIN. DC PLAN PENDING ON PATIENT'S RESPONSE TO TREATMENT. Addendum: 05/18/19 at 1617 by Nohelia Munoz CM STILL ON ZOSYN. U/S OF SCROTAL AREA PENDING. PSYCH, CARDIO AND PODIATRY CONSULT IN PLACE. DC PLAN PENDING ON PATIENT'S RESPONSE TO TREATMENT.
--- NOTE | 2019-05-16 12:08 | NUR ---
HELD 1200 TYLENOL AND BENADRYL PT HAD PRE TRANSFUSION MEDICATIONS AT 0840 PT DOES NOT NEED ANOTHER
--- NOTE | 2019-05-16 12:10 | NUR ---
PT TAKEN OFF UNIT TO OR FOR PROCEDURE Addendum: 05/16/19 at 1211 by Leydi Herrera RN ERROR WRONG PT
[2019-05-16 12:30] VITALS: BP 115/56
--- NOTE | 2019-05-16 12:45 | NUR ---
BLOOD TRANSFUSION COMPLETE PT AWAKE AND ALERT PT APPEARS STABLE AND IN NO APPARENT DISTRESS. ALL SAFETY MEASURES ARE IN PLACE PT IS ON TELE WILL CONTINUE TO MONITOR.
[2019-05-16] MEDS: ALBUTEROL SULFATE/IPRATROPIU 3 ML SOL IH PRN ×2 (13:05→20:34)
--- NOTE | 2019-05-16 13:46 | NUR ---
FREQUENT ROUNDING ON PT PT APPEAR STABLE AND IN NO APPARENT DISTRESS, ALL SAFETY MEASURES ARE IN PLACE WILL CONTINUE TO MONITOR
--- NOTE | 2019-05-16 15:34 | NUR ---
FREQUENT ROUNDING ON PT PT APPEARS STABLE AND IN NO APPARENT DISTRESS. ALL SAFETY MEASURES ARE IN PLACE. WILL CONTINUE TO MONITOR
[2019-05-16 16:43] VITALS: BP 121/66
[2019-05-16 17:27] LABS: BASOPHILS # (AUTO) 0.1 K/uL (0.00-0.22); BASOPHILS % (AUTO) 0.4 % (0.0-2.0); EOSINOPHILS # (AUTO) 0.2 K/uL (0-0.4); EOSINOPHILS % (AUTO) 1.1 % (0.0-4.0); HEMATOCRIT 25.4 % (36-52); HEMOGLOBIN 7.9 g/dL (12.0-18.0); LYMPHOCYTES # (AUTO) 0.8 K/uL (2.0-11.5); LYMPHOCYTES % (AUTO) 4.5 % (20.5-51.1); MEAN CORPUSCULAR HEMOGLOBIN 25 pg (27-31); MEAN CORPUSCULAR HGB CONC 31 g/dL (33-37); MONOCYTES # (AUTO) 2.1 K/uL (0.8-1.0); MONOCYTES % (AUTO) 11.8 % (1.7-9.3); NEUTROPHILS # (AUTO) 14.5 K/uL (1.8-7.7); NEUTROPHILS % (AUTO) 82.2 % (42.2-75.2); PLATELET COUNT (AUTO) 135 K/uL (140-450); RED BLOOD CELL COUNT(AUTO) 3.21 MIL/uL (4.20-6.10); RED CELL DISTRIBUTION WIDTH 23.7 % (11.6-13.7); WHITE BLOOD COUNT (AUTO) 17.7 K/uL (4.8-10.8)
--- NOTE | 2019-05-16 17:46 | NUR ---
FREQUENT ROUNDING ON PT PT APPEARS STABLE AND IN NO APPARENT DISTRESS. ALL SAFETY MEASURES ARE IN PLACE WILL CONTINUE TO MONITOR
--- NOTE | 2019-05-16 19:26 | NUR ---
ENDORSED PT TO PM RN PT AWAKE IN BED PT ON TELE MONITORING. PT ON 7L 02 VIA OXIMIZER IVF INFUSING. ALL SAFETY MEASURES ARE IN PLACE CALL LIGHT WITHIN REACH
--- NOTE | 2019-05-16 19:28 | NUR ---
RECEIVED PATIENT FROM AM SHIFT NURSE ANTOINETTE IN STABLE CONDITION. TELE PATIENT. NO C/O PAIN. NO S/SX ACUTE DISTRESS. IV FLUIDS INFUSING WELL. CALL LIGHT WITHIN REACH. WILL CONTINUE TO MONITOR.
[2019-05-16 20:00] VITALS: BP 136/73
--- NOTE | 2019-05-16 20:45 | NUR ---
RECEIVED PATIENT ON 7L OXYMIZER, PULSE OX READING 80%. PATIENT COMPLAINING OF FEELING SHORT OF BREATH. PAGED RESIDENT PHYSICIAN, DR. FOSTER AT 2020. ORDERS FOR BIPAP PLACED. INITIATED BIPAP. PROTECTIVE SKIN GEL BARRIER IN PLACE. PRN BREATHING TREATMENT GIVEN IN-LINE WITH NIPPV. PATIENT STATES THAT THE TX AND NIPPV "HELPED". TOLERATED TX AND BIPAP WELL WITHOUT ADVERSE SIDE EFFECTS. PATIENT AWARE HOW TO DOFF EQUIPMENT. WILL CONTINUE TO MONITOR.
[2019-05-16] MEDS: ATORVASTATIN 20 MG TAB PO SCH (20:57)
[2019-05-16] MEDS ORDERED: FUROSEMIDE 40 MG/4 ML VIAL IVP SCH (21:00)
--- NOTE | 2019-05-16 21:07 | NUR ---
PATIENT C/O ACHING LEG PAIN 01/12. MEDICATED ORDERED. CALL LIGHT WITHIN REACH. WILL CONTINUE TO MONITOR.
--- NOTE | 2019-05-16 23:26 | NUR ---
PATIENT STATED HE DID NOT WANT TO WEAR HIS BIPAP. RISKS AND BENEFITS EXPLAINED BUT PATIENT CONTINUED TO REFUSE X2. RT AT BEDSIDE TO EXPLAIN RISKS AND BENEFITS WELL BUT PATIENT CONTINUED TO REFUSE. CALL LIGHT WITHIN REACH. WILL CONTINUE TO MONITOR.
--- NOTE | 2019-05-16 23:30 | NUR ---
PATIENT WANTED BIPAP MASKED REMOVED. PATIENT STATES "HE FEELS BETTER AND DOES NOT NEED IT". REFUSING TO WEAR BIPAP AT THIS TIME. WILL CONTINUE TO MONITOR.
[2019-05-17] VITALS: BP 140/71
--- NOTE | 2019-05-17 01:15 | NUR ---
PROVIDED EDUCATION REGARDING DIET. PATIENT HAS SEVERAL CANS OF SODA AND COOKIES AT BEDSIDE. PATIENT WAS UNRECEPTIVE TO DIETARY EDUCATION AND CONTINUES TO SCREAM AT THE STAFF THAT WE DON'T GIVE HIM WHAT HE WANTS. NO S/SX ACUTE DISTRESS AT THIS TIME. CALL LIGHT WITHIN REACH. WILL CONTINUE TO MONITOR.
[2019-05-17] MEDS: HYDROcodone/APAP 7.5/325 MG 1 TAB PO PRN (01:46)
--- NOTE | 2019-05-17 01:46 | NUR ---
PATIENT C/O ACHING PAIN 6/10 IN LEFT LEG. MEDICATED ORDERED. WILL CONTINUE TO MONITOR.
[2019-05-17] MEDS: LEVOFLOXACIN 750 MG/D5W PREMIX 150 ML IV SCH (02:04)
--- NOTE | 2019-05-17 02:56 | NUR ---
PATIENT CONTINUES IN STABLE CONDITION. NO S/SX ACUTE DISTRESS. CALL LIGHT WITHIN REACH. WILL CONTINUE TO MONITOR.
[2019-05-17 04:00] VITALS: BP 126/69
--- NOTE | 2019-05-17 04:00 | NUR ---
MADE ROUNDS. PATIENT ASLEEP. CONTINUES IN STABLE CONDITION. NO S/SX ACUTE DISTRESS. CALL LIGHT WITHIN REACH. WILL CONTINUE TO MONITOR.
[2019-05-17] MEDS: PANTOPRAZOLE 40 MG TABEC PO SCH (06:30)
[2019-05-17 06:33] LABS: ANION GAP 6.7 (8-16); CARBON DIOXIDE 31.2 mmol/L (21-32); CREATININE 1.2 mg/dL (0.7-1.3); POTASSIUM 3.9 mmol/L (3.5-5.1)
[2019-05-17 06:40] LABS: MAGNESIUM 1.8 mg/dL (1.8-2.4); PHOSPHORUS 2.7 mg/dL (2.5-4.9)
[2019-05-17 06:52] LABS: HEMATOCRIT 23.5 % (36-52); HEMOGLOBIN 7.3 g/dL (12.0-18.0); MEAN CORPUSCULAR HEMOGLOBIN 25 pg (27-31); MEAN CORPUSCULAR HGB CONC 31 g/dL (33-37); MEAN CORPUSCULAR VOLUME 79.4 fL (80-94); PLATELET COUNT (AUTO) 157 K/uL (140-450); RED BLOOD CELL COUNT(AUTO) 2.96 MIL/uL (4.20-6.10); RED CELL DISTRIBUTION WIDTH 23.2 % (11.6-13.7); WHITE BLOOD COUNT (AUTO) 21.3 K/uL (4.8-10.8)
--- NOTE | 2019-05-17 07:23 | NUR ---
ENDORSED PATIENT IN STABLE CONDITION TO AM SHIFT NURSE.
[2019-05-17 07:24] LABS: LYMPHOCYTES % (MANUAL) 6 % (20-46); MONOCYTES % (MANUAL) 2 % (5-12)
--- NOTE | 2019-05-17 07:25 | NUR ---
RECEIVED REPORT FROM GARDENING SUPERVISOR NURSE. PT IS IN BED RESTING WITH NO SIGNS OF DISTRESS NOTED. CALL LIGHT IN REACH.
[2019-05-17 08:00] VITALS: BP 130/45
[2019-05-17 08:07] LABS: FOLIC ACID 6.2 ng/mL (>3.0)
[2019-05-17 08:07] LABS: T4 (THYROXINE) 4.9 ug/dL (4.5-12.0)
[2019-05-17] MEDS: FERROUS SULFATE 325 MG TABEC PO SCH (09:03)
[2019-05-17] MEDS: FUROSEMIDE 40 MG/4 ML VIAL IVP SCH (09:03)
[2019-05-17] MEDS: CARVEDILOL 6.25 MG TAB PO SCH ×2 (09:03→20:59)
[2019-05-17] MEDS: LACTOBACILLUS RHAMNOSUS GG 1 EACH CAP PO SCH (09:03)
[2019-05-17] MEDS: MORPHINE SULFATE 2 MG/ML SYR IVP PRN ×4 (09:08→22:29)
--- NOTE | 2019-05-17 10:12 | NUR ---
PT IS ALERT AND RESPONSIVE. NO DISTRESS NOTED. PT'S VITAL SIGNS WITHIN NORMAL LEVELS. CALL LIGHT IN REACH.
--- NOTE | 2019-05-17 10:40 | NUR ---
SATURATION 99% ON SUPPLEMENTAL OXYGENT AT 3 LPM VIA OXYMIZER TITRATED FIO2 TO 2 LPM CHANGED OXYGEN DEVICE TO A NASAL CANNULA ADDED HUMIDIFIER Addendum: 05/17/19 at 1143 by Mckay Tavarez RT ADDED HUMIDIFIER PATIENT C/O NASAL DRYNESS
[2019-05-17 12:00] VITALS: BP 140/50
--- NOTE | 2019-05-17 12:55 | NUR ---
PT IS RESTING IN BED .PATIENT HAVING LUNCH AT THIS TIME. NO COMPLAINS OF PAIN REPORTED. VITAL SIGNS WITHIN NORMAL LEVELS. CALL LIGHT IN REACH.
--- NOTE | 2019-05-17 13:37 | NUR ---
05/17/19 RD INITIAL ASSESSMENT COMPLETED PLEASE REFER TO NUTRITION ASSESSMENT UNDER CARE ACTIVITY FOR ESTIMATED NUTRITIONAL NEEDS. 1. CONTINUE CARDIAC DIET TOLERATED 2. RD WILL PROVIDE NUTRITION EDUCATION DURING FOLLOW-UP VISIT. 3. RD TO FOLLOW-UP 2-3 DAYS, HIGH RISK WYATT GONSALVES, LIBORIO
[2019-05-17 16:00] VITALS: BP 149/45
--- NOTE | 2019-05-17 16:28 | NUR ---
PT IS RESTING IN BED IN STABLE CONDITION. NO DISTRESS NOTED. CALL LIGHT IN REACH.
[2019-05-17] MEDS: PIPERACILLIN/TAZOBACTAM 3.375 GM in DEXTROSE 5% 50 ML IV SCH (17:45)
[2019-05-17] MEDS ORDERED: NITROGLYCERIN 0.4 MG TAB SL PRN (18:00)
--- NOTE | 2019-05-17 18:00 | NUR ---
PT WAS COMPLAINING OF PAIN TO CHEST AND LEG PAIN AT 1745. VITAL SIGNS TAKEN BP NOTED AT 138/85, O2 AT 96. NOTIFIED DR MARIE. PER NITRO TO BE GIVEN. WHEN GIVING NITRO PT SAID THAT HE DID NOT HAVE CHEST PAIN. NOTIFIED DR MARIE. NITRO NOT GIVEN. CALL LIGHT IN REACH.
--- NOTE | 2019-05-17 19:30 | NUR ---
SHIFT REPORT GIVEN TO BRIQUETTE OPERATOR NURSE. PT IS IN BED AT THIS TIME. PATIENT CONTINUES TO COMPLAIN OF PAIN TO LEG. BRIQUETTE OPERATOR NURSE AWARE. CALL LIGHT IN REACH.
--- NOTE | 2019-05-17 19:30 | NUR ---
RECIEVED PT AAOX4 , ON O2 AT 5LPM/NC - O2 SAT WNL , IV SITE INTACT AND PATENT - ON SL. ON SAFETY / FALL PRECAUTION PROTOCOL - BED ALARM ON . POC DISCUSSED AND VERBALIZED UNDERSTANDING , CALL LIGHT WITHIN REACH .WITH L LEG ULCERS WRAPPED WITH BANDAGE AND DRESSING STILL INTACT AND DRY - C/O PAIN -WILL MEDICATE ORDERED . - WILL CONT. TO MONITOR.
[2019-05-17 20:00] VITALS: BP 142/60
--- NOTE | 2019-05-17 20:19 | NUR ---
RECEIVED PATIENT ON 2L NASAL CANNULA, PULSE OX SAT 97%. PATIENT REFUSING BREATHING TREATMENT. NO SOB NOTED. PRN HHN NOT GIVEN; NOT INDICATED AT THIS TIME. NO ACUTE RESPIRATORY DISTRESS NOTED AT THIS TIME. WILL CONTINUE TO MONITOR.
[2019-05-17] MEDS: ATORVASTATIN 20 MG TAB PO SCH (20:59)
--- NOTE | 2019-05-17 22:00 | NUR ---
MADE ROUNDS . NO S/SXS OF ACUTE DISTRESS NOTED AT THIS TIME - O2 SAT WNL.WILL CONT. TO MONITOR.
[2019-05-18] VITALS: BP 145/80
--- NOTE | 2019-05-18 | NUR ---
MADE ROUND . O2 SAT WNL - REQUESTING MIDNIGHT SNACK - FOOD PROVIDED , W/ BEARABLE PAIN HE SAID AT THIS TIME. WILL CONT. TO MONITOR - CALL LIGHT WITHIN REACH.
[2019-05-18] MEDS: PIPERACILLIN/TAZOBACTAM 3.375 GM in DEXTROSE 5% 50 ML IV SCH ×4 (00:52→19:07)
--- NOTE | 2019-05-18 02:00 | NUR ---
SLEEPING - ON ART TEACHER .
--- NOTE | 2019-05-18 02:00 | NUR ---
SLEEPING - CHEST RISE AND FALLEQUALLY - CALL LIGHT WITHIN REACH.
[2019-05-18] MEDS: MORPHINE SULFATE 2 MG/ML SYR IVP PRN ×3 (03:07→15:53)
[2019-05-18 04:00] VITALS: BP 149/83
--- NOTE | 2019-05-18 04:00 | NUR ---
MADE ROUNDS - O2 SAT WNL - ON OBSERVATION ASSISTANT . - BED ALARM ON .USED BEDSIDE COMMODE - + BM .
--- NOTE | 2019-05-18 06:00 | NUR ---
SLEEPING - ON DIGITAL MEDIA INTERN.
[2019-05-18 06:23] LABS: BASOPHILS % (AUTO) 0.2 % (0.0-2.0); EOSINOPHILS # (AUTO) 0.1 K/uL (0-0.4); EOSINOPHILS % (AUTO) 0.8 % (0.0-4.0); HEMATOCRIT 23.1 % (36-52); HEMOGLOBIN 7.2 g/dL (12.0-18.0); LYMPHOCYTES # (AUTO) 0.6 K/uL (2.0-11.5); LYMPHOCYTES % (AUTO) 3.4 % (20.5-51.1); MEAN CORPUSCULAR HEMOGLOBIN 25 pg (27-31); MEAN CORPUSCULAR HGB CONC 31 g/dL (33-37); MEAN CORPUSCULAR VOLUME 79.7 fL (80-94); MONOCYTES % (AUTO) 11.3 % (1.7-9.3); NEUTROPHILS # (AUTO) 14.9 K/uL (1.8-7.7); NEUTROPHILS % (AUTO) 84.3 % (42.2-75.2); PLATELET COUNT (AUTO) 127 K/uL (140-450); RED CELL DISTRIBUTION WIDTH 23.5 % (11.6-13.7); WHITE BLOOD COUNT (AUTO) 17.7 K/uL (4.8-10.8)
[2019-05-18 06:29] LABS: CREATININE 1.1 mg/dL (0.7-1.3)
[2019-05-18 06:35] LABS: CARBON DIOXIDE 33.5 mmol/L (21-32); POTASSIUM 3.5 mmol/L (3.5-5.1)
[2019-05-18 06:36] LABS: MAGNESIUM 1.8 mg/dL (1.8-2.4); PHOSPHORUS 2.4 mg/dL (2.5-4.9)
[2019-05-18] MEDS: PANTOPRAZOLE 40 MG TABEC PO SCH (06:46)
--- NOTE | 2019-05-18 07:22 | NUR ---
ENDORSED TO AM SHIFT FOR CONT. OF CARE . PT IS ON STABLE CONDITION.
--- NOTE | 2019-05-18 07:25 | NUR ---
REPORT RECEIVED FROM NIGHT NURSE. PT RESTING APPEARS COMFORTABLE. NO S/S OF ACUTE DISTRESS NOTED, SAFETY PRECAUTIONS IN PLACE, PERSONAL ITEMS WITHIN EASY REACH. WILL CONTINUE TO MONITOR.
[2019-05-18 08:00] VITALS: BP 136/58
[2019-05-18] MEDS: FERROUS SULFATE 325 MG TABEC PO SCH (09:19)
--- NOTE | 2019-05-18 09:19 | NUR ---
Rope Silica Machine Operator Note: Basic Screen: Yes High Risk DC Screen Yes Name: PAMELA Ren Relationship: FRIEND Pre-Admission Living Arrangements: Lives with Other Current Home Health Name/Tel: N/A Current DME/02 Name/Tel: N/A Current Hospice Name/Tel: N/A Current Dialysis Name/Tel: N/A Advance Directive No Physician Orders for Life Sustaining Treatment Form No Information Taught: Advance Directive Community Resources Person Taught: Patient Teaching Tools: Verbal Factors Affecting Learning: None Participation Level: Refused Needs Additional Education: No Discipline: Case Mgt/Social Svcs Tentative Discharge Plan/Destination: No Needs Identified Will require assistance post discharge: No Referred to Donor Relations Associate: No Tentative Discharge Plan Summary: Patient is a 68=9-year-old male admitted for CHF exacerbation. Patient has PMHX of HTN, CHF, and atrial fibrillation. Patient was admitted from home. SW met with patient at bed side to verify demographics. Patient was uncooperative in answering questions. Patient refused help regarding caregivers, assisted living, board and cares, home cares, and advanced directive. Patient stated he makes roughly $1300 a month from disability but refuses assistance. No further needs identified. Signature: JUANI Bhatia Date: May 17, 2019 Time: 16:12
[2019-05-18] MEDS: CARVEDILOL 6.25 MG TAB PO SCH ×2 (09:20→20:39)
[2019-05-18] MEDS: LACTOBACILLUS RHAMNOSUS GG 1 EACH CAP PO SCH (09:20)
[2019-05-18] MEDS: FUROSEMIDE 40 MG/4 ML VIAL IVP SCH (09:20)
--- NOTE | 2019-05-18 10:25 | NUR ---
PT SLEEPING APPEARS COMFORTABLE. CALL LIGHT AND SAFETY PRECAUTIONS IN PLACE, PERSONAL ITEMS WITHIN EASY REACH. NO S/S OF ACUTE DISTRESS NOTED AT THIS TIME, WILL CONTINUE TO MONITOR.
[2019-05-18 12:00] VITALS: BP 142/73
--- NOTE | 2019-05-18 12:00 | NUR ---
PT FOUND TO HAVE REMOVED ALL CLOTHING AND EXPERIENCED AN EPISODE OF INCONTINENCE, ASSIST PT W HYGEINE, LINEN CHANGED, PT TOLERATED ASSISTANCE WELL. CALL LIGHT AND PERSONAL ITEMS PLACED WITHIN EASY REACH, NO ADDITIONAL S/S OF ACUTE DISTRESS NOTED, SAFETY PRECAUTIONS IN PLACE, WILL CONTINUE TO MONITOR.
[2019-05-18] MEDS: HYDROcodone/APAP 7.5/325 MG 1 TAB PO PRN ×2 (13:06→20:40)
--- NOTE | 2019-05-18 13:06 | NUR ---
PT IV NON FUNCTIONAL, PT DENIES PAIN TO SITE, NO FLUSH NO BLOOD RETURN, UNABLE TO LOCATE VIABLE VEIN AT THIS TIME, CHARGE NURSE NOTIFIED, WILL BORROW VEIN FINDER FROM ICU FOR INSERTION.
--- NOTE | 2019-05-18 15:50 | NUR ---
PT AWAKE A/O AB;E TO COMMUNICATE NEEDS, C/O PAIN, ENCOURAGED DIVERSIONAL ACTIVITIES, ASSISTED TO REPOSITION, WILL MEDICATE PER ORDER. SAFETY PRECAUTIONS IN PLACE, PERSONAL ITEMS WITHIN EASY REACH. WILL ADMINISTER MEDICATION AND REASSESS.
[2019-05-18 16:00] VITALS: BP 112/47
--- NOTE | 2019-05-18 18:30 | NUR ---
PT SLEEPING AT THIS TIME APPEARS COMFORTABLE, RADIOLOGY ARRIVED TO PERFORM SCROTAL US PER ORDER, PT AGREEABLE..
--- NOTE | 2019-05-18 19:30 | NUR ---
PT REMAIN A/O ABLE TO COMMUNICATE NEEDS, COMFORTABLE AT THIS TIME HAVING DINNER, REPORT ENDORSED TO NURSE LALA
--- NOTE | 2019-05-18 19:31 | NUR ---
RECD. RESTING IN BED, JUST WOKE UP. ALERT/ORIENTED BUT REFUSED TO ANSWER QUESTIONS FOR ASSESSMENT. IV OF NS AT TKO INFUSING, LEFT FOREARM G22. PLAN OF CARE FOR THE SHIFT DISCUSSED. STATED "I DON'T CARE." DENIES PAIN 0/10.
--- NOTE | 2019-05-18 20:23 | NUR ---
RECEIVED PATIENT ON ROOM AIR, PULS OX SAT 96%. PT REFUSED BREATHING TREATMENT. PRN HHN NOT GIVEN. NO ACUTE RESPIRATORY DISTRESS NOTED AT THIS TIME. WILL CONTINUE TO MONITOR.
--- NOTE | 2019-05-18 20:35 | NUR ---
REFUSED VITAL SIGN TO BE TAKEN BUT TAKE PO MEDICATION DUE FOR THE NIGHT.
[2019-05-18] MEDS: ATORVASTATIN 20 MG TAB PO SCH (20:39)
--- NOTE | 2019-05-18 21:00 | NUR ---
SLEEPING COMFORTABLY IN BED.
[2019-05-19] VITALS: BP 125/65
--- NOTE | 2019-05-19 | NUR ---
WOKE UP SHOUTING, PUT ON 02 CANNULA THAT WAS TAKEN OFF BY PATIENT. STATED "I WILL DO IT. I WILL DO IT" BUT WHEN ASKED WHAT IS WRONG STATED "I DON'T KNOW."
--- NOTE | 2019-05-19 | NUR ---
INFORMED DR. OSMAN REGARDING UNUSUAL PATIENT BEHAVIOR. HE IS AWARE THAT PATIENT IS CONFUSED AND OCCASIONALLY MOANS AND SHOUTS.
--- NOTE | 2019-05-19 01:00 | NUR ---
STILL [id number] SHOUTS AND WHEN ASKED WHAT IS HAPPENING TO HIM, SAYS "I'M NOT SHOUTING, I AM RELAX." THEN WHEN NURSE WENT OUT OF ROOM, WILL AGAIN SHOUTS. RT CAME AND ASKED IF HE NEEDS BREATHING TREATMENT STATED HE DOES NOT NEED IT.
[2019-05-19] MEDS: PIPERACILLIN/TAZOBACTAM 3.375 GM in DEXTROSE 5% 50 ML IV SCH ×3 (01:24→12:41)
[2019-05-19] MEDS ORDERED: MORPHINE SULFATE 2 MG/ML SYR IVP PRN (01:45)
--- NOTE | 2019-05-19 04:00 | NUR ---
GETTING OUT OF BED, ASSISTED TO PUT BACK IN BED. HAD LARGE FORMED BM. CLEANSED AND REPOSITIONED IN BED FOR COMFORT.
[2019-05-19 05:55] LABS: HEMATOCRIT 23.5 % (36-52); HEMOGLOBIN 7.3 g/dL (12.0-18.0); MEAN CORPUSCULAR HEMOGLOBIN 25 pg (27-31); MEAN CORPUSCULAR HGB CONC 31 g/dL (33-37); MEAN CORPUSCULAR VOLUME 79.3 fL (80-94); PLATELET COUNT (AUTO) 110 K/uL (140-450); RED BLOOD CELL COUNT(AUTO) 2.96 MIL/uL (4.20-6.10); RED CELL DISTRIBUTION WIDTH 24.4 % (11.6-13.7); WHITE BLOOD COUNT (AUTO) 15.3 K/uL (4.8-10.8)
[2019-05-19 05:59] LABS: ANION GAP 12.4 (8-16); CARBON DIOXIDE 31.3 mmol/L (21-32); CREATININE 1.2 mg/dL (0.7-1.3); POTASSIUM 3.7 mmol/L (3.5-5.1)
[2019-05-19 06:04] LABS: MAGNESIUM 1.6 mg/dL (1.8-2.4); PHOSPHORUS 2.1 mg/dL (2.5-4.9)
[2019-05-19] MEDS: PANTOPRAZOLE 40 MG TABEC PO SCH (06:45)
--- NOTE | 2019-05-19 07:30 | NUR ---
CONDITION REMAIN STABLE. ENDORSED TO AM SHIFT NURSE FOR CONTINUITY OF CARE.
--- NOTE | 2019-05-19 07:42 | NUR ---
RECEIVED PATIENT FROM WATCH REPAIR PERSON RN FRO CONTINUITY OF CARE. PT IS AAOX3, ON 2L NASAL CANNULA, PULSE OX SAT 97%. PATIENT REFUSING BREATHING TREATMENT. NO SOB NOTED. NO ACUTE RESPIRATORY DISTRESS NOTED AT THIS TIME. ATTEMPTED TO EXPLAIN POC TO PT BUT PT REFUSING CARE AND TO BE TALKED TO AT THIS TIME. CALL LIGHT WITHIN REACH, BED IN LOW POSITION. WILL ROUND FREQUENTLY ON PT.
[2019-05-19 07:44] LABS: EOSINOPHILS % (MANUAL) 2 % (0-4); LYMPHOCYTES % (MANUAL) 4 % (20-46); MONOCYTES % (MANUAL) 5 % (5-12)
[2019-05-19 07:46] VITALS: BP 127/53
[2019-05-19 08:00] VITALS: BP 111/74
[2019-05-19] MEDS: FERROUS SULFATE 325 MG TABEC PO SCH (08:00)
[2019-05-19] MEDS: LACTOBACILLUS RHAMNOSUS GG 1 EACH CAP PO SCH (09:00)
[2019-05-19] MEDS: FUROSEMIDE 40 MG/4 ML VIAL IVP SCH (09:00)
[2019-05-19] MEDS: CARVEDILOL 6.25 MG TAB PO SCH (09:00)
--- NOTE | 2019-05-19 09:24 | NUR ---
PT REFUSING ALL MEDICATIONS AT THIS TIME. I EXPLAINED THE IMPORTANCE OF TAKING ALL MEDS BUT PT DID NOT WANT TO TALK AT THE MOMENT. MD AWARE OF PT REFUSING. PT IN STABLE CONDITION AT THIS TIME.
--- NOTE | 2019-05-19 11:42 | NUR ---
FOUND PT SLEEPING IN BED. ATTEMPTED TO TAKE VITALS BUT PT REFUSING AT THIS TIME. MD MADE AWARE. PT TO BE DISCHARGED TODAY.
[2019-05-19] MEDS ORDERED: MAGNESIUM OXIDE 400 MG TAB PO SCH (13:22)
--- NOTE | 2019-05-19 13:35 | NUR ---
PT REFUSING MAG OX AT THIS TIME. HE STATES THAT HE WANTS TO GO HOME. AWARE OF THIS ISSUE.
--- NOTE | 2019-05-19 15:42 | NUR ---
PT RESTING IN BED. ALL NEEDS MET.
[2019-05-19] MEDS: HYDROcodone/APAP 7.5/325 MG 1 TAB PO PRN (15:54)
[2019-05-19] MEDS ORDERED: HYDR-5122 PO (16:41)
--- NOTE | 2019-05-19 16:50 | NUR ---
PT DISCHARGED HOME FOR SELF CARE. PT DID NOT WANT TO SIGN DISCHARGE PAPERWORK BUT VERBALIZED UNDERSTANDING OF TEACHING. PT IV REMOVED WITH TIP INTACT. ALL PERSONAL BELONGINGS TAKEN HOME WITH PT. PT REFUSING TO HAVE DISCHARGE PICTURES TAKEN OF HIS WOUNDS. WRIST BAND REMOVED. PT LEFT IN STABLE CONDITION WITH HIS FRIEND PAMELA WHO I CALLED FROM THE FACE SHEET. PT WAS ALSO GIVEN NORCO PRESCRIPTION TO BE TAKEN TO HIS PHARMACY.
== END 2019-05-19 16:40 | disposition home or self-care (01) | DRG 291 ==
LOC: MED 18:53 → MMU 21:17
PROVIDERS: ADMIT General Practice; ATTEND General Practice
PROC: 30233N1 Transfusion of Nonautologous Red Blood Cells into Peripheral Vein, Percutaneous Approach (ICD-10-PCS; 2019-05-15)
PROC: 5A09357 Assistance with Respiratory Ventilation, Less than 24 Consecutive Hours, Continuous Positive Airway Pressure (ICD-10-PCS; principal; 2019-05-16)
DX: I11.0 Hypertensive heart disease with heart failure (principal); E43 Unspecified severe protein-calorie malnutrition; R65.11 Systemic inflammatory response syndrome (SIRS) of non-infectious origin with acute organ dysfunction; L97.929 Non-pressure chronic ulcer of unspecified part of left lower leg with unspecified severity; I50.43 Acute on chronic combined systolic (congestive) and diastolic (congestive) heart failure; I73.9 Peripheral vascular disease, unspecified; E78.5 Hyperlipidemia, unspecified; F17.200 Nicotine dependence, unspecified, uncomplicated; I45.10 Unspecified right bundle-branch block; I48.91 Unspecified atrial fibrillation; J44.9 Chronic obstructive pulmonary disease, unspecified; F19.19 Other psychoactive substance abuse with unspecified psychoactive substance-induced disorder; D64.9 Anemia, unspecified; I87.8 Other specified disorders of veins; Z86.718 Personal history of other venous thrombosis and embolism; Z91.19 Patient's noncompliance with other medical treatment and regimen; Z68.35 Body mass index [BMI] 35.0-35.9, adult
CPT/HCPCS: 36415; 36600; 71045; 73590; 76705; 76870; 80048; 80053; 80305; 81003; 82150; 82607; 82728; 82746; 82803; 83540; 83605; 83690; 83735; 83880; 84100; 84436; 84439; 84443; 84479; 84484; 85025; 85045; 85610; 85730; 86886; 86900; 86901; 86920; 87040; 87070; 87081; 87086; 87186; 93005; 93970; 93971; 94640; 94660; 96365; 96375; 99285; J0696; J1940; J1956; J2270; J2405; J2543; J7030; J7060; J7620; P9016; Q0092; Q0163

== ENCOUNTER 2019-05-23 01:14 | Inpatient (IN) | payer OTHER ==
[~2019-05-23] VITALS: Ht 175.3 cm; Wt 102.1 kg
[~2019-05-23 01:14] MED LIST changes: +HYDR-5122 PO
--- NOTE | 2019-05-23 01:15 | NUR ---
69 YEAR OLD MALE BIBA FROM HOME FOR SHORTNESS OF BREATHE, PER EMS PATIENT WAS SPO2 75% ON RA. PATIENT ARRIVED IN ED WITH RT AT BEDSIDE. PATIENT PLACED ON BIPAP, RR 22, SPO2 88%, LABORED BREATHING. LUNGS COURSE CRACKLES BILATERALLY. PATIENT AOX4. WOUNDS PRESENT THROUGHOUT LOWER EXTREMITIES WITH EDEMA PRESENT. LEFT LOWER EXTREMITY HAS OPEN WOUND WITH YELLOW DISCHARGE. PATIENT BP 210/100, HR 130. BED IN LOWEST POSITION, LOCKED, BED RAIL UPX1. PMH - CHF ALLERGIES - NKA
[2019-05-23 01:20] VITALS: BP 199/134
--- NOTE | 2019-05-23 01:25 | NUR ---
DR SOMMERS AWARE OF PATIENT BP 206/96, HR 160, RR 31. WILL CONTINUE TO MONITOR.
[2019-05-23] MEDS ORDERED: ALBUTEROL SULFATE/IPRATROPIU 3 ML SOL IH ONE (01:30)
[2019-05-23] MEDS ORDERED: FUROSEMIDE 100 MG/10 ML VIAL IVP ONE (01:30)
[2019-05-23] MEDS ORDERED: LEVOFLOXACIN 500 MG/D5W PREMIX 100 ML IV ONE (01:35)
[2019-05-23] MEDS ORDERED: VANCOMYCIN 1,000 MG in DEXTROSE 5% 250 ML IV ONE (01:35)
--- NOTE | 2019-05-23 01:41 | NUR ---
EKG PERFORMED AT BEDSIDE
--- NOTE | 2019-05-23 02:00 | NUR ---
PATIENT ALERT AND AWAKE, BREATHING EVEN AND LABORED
[2019-05-23] MEDS ORDERED: MORPHINE SULFATE 4 MG/ML SYR IVP ONE (02:05)
[2019-05-23 02:07] LABS: HEMATOCRIT 25.4 % (36-52); HEMOGLOBIN 7.7 g/dL (12.0-18.0); MEAN CORPUSCULAR HEMOGLOBIN 24 pg (27-31); MEAN CORPUSCULAR HGB CONC 30 g/dL (33-37); MEAN CORPUSCULAR VOLUME 80.6 fL (80-94); PLATELET COUNT (AUTO) 132 K/uL (140-450); RED BLOOD CELL COUNT(AUTO) 3.15 MIL/uL (4.20-6.10); RED CELL DISTRIBUTION WIDTH 23.9 % (11.6-13.7)
[2019-05-23 02:26] LABS: EOSINOPHILS % (MANUAL) 1 % (0-4); LYMPHOCYTES % (MANUAL) 3 % (20-46); MONOCYTES % (MANUAL) 11 % (5-12)
[2019-05-23 02:29] LABS: ALBUMIN 2.7 g/dL (3.4-5.0); TOTAL BILIRUBIN 0.9 mg/dL (0.0-1.0)
[2019-05-23 02:30] LABS: ANION GAP 10.8 (8-16); CARBON DIOXIDE 29.6 mmol/L (21-32); CREATININE 1.2 mg/dL (0.7-1.3); POTASSIUM 4.4 mmol/L (3.5-5.1)
[2019-05-23] MEDS ORDERED: ACETAMINOPHEN 325 MG TAB PO PRN (02:35)
[2019-05-23] MEDS ORDERED: HYDROcodone/APAP 5/325 MG 1 TAB TAB PO PRN (02:35)
[2019-05-23] MEDS ORDERED: ONDANSETRON 4 MG/2 ML VIAL IM/IVP PRN (02:35)
[2019-05-23] MEDS ORDERED: LORazepam 2 MG/ML VIAL IM/IVP PRN (02:35)
[2019-05-23] MEDS ORDERED: DOCUSATE SODIUM 100 MG GELCAP PO PRN (02:35)
[2019-05-23] MEDS ORDERED: MORPHINE SULFATE 2 MG/ML SYR IVP PRN (02:35)
[2019-05-23] MEDS ORDERED: VANCOMYCIN 1,000 MG VIAL ONE (02:37)
[2019-05-23] MEDS ORDERED: ALBUTEROL SULFATE/IPRATROPIU 3 ML SOL IH PRN (02:40)
--- NOTE | 2019-05-23 03:00 | NUR ---
PATIENT ALERT AND AWAKE, BREATHING LABORED. RESPIRATORY CALLED TO FIX MASK ON PATIENT BECAUSE SEALER GEL FROM BIPAP WAS HANGING ONTO FACE INCORRECTLY.
[2019-05-23] MEDS ORDERED: ACETAMINOPHEN EXTRA STRENGTH 500 MG TAB PO PRN (03:10)
[2019-05-23 03:14] LABS: APPEARANCE,URINE CLEAR (CLEAR); BILIRUBIN,URINE NEGATIVE (NEGATIVE); BLOOD, URINE TRACE-I (NEGATIVE); COLOR,URINE YELLOW (YELLOW); LEUKOCYTE ESTERASE ,URINE NEGATIVE (NEGATIVE); NITRITE, URINE NEGATIVE (NEGATIVE); PH,URINE 6.5 (5.0-9.0); UGLUCOSE NEGATIVE (NEGATIVE)
[2019-05-23 03:14] LABS: PHOSPHORUS 3.2 mg/dL (2.5-4.9); THYROID STIMULATING HORMONE 1.04 uIU/mL (0.34-3.74)
[2019-05-23 03:16] LABS: MAGNESIUM 1.8 mg/dL (1.8-2.4)
[2019-05-23 03:19] LABS: PROTHROMBIN TIME 12.7 secs (10.8-13.4)
[2019-05-23 03:20] LABS: BARBITURATE, URINE NEG. ng/ml (NEG <=200); BENZODIAZEPINE, URINE NEG. ng/mL (NEG <=200); CANNABINOID, URINE NEG. ng/mL (NEG <=50); COCAINE, URINE NEG. ng/mL (NEG <=300); OPIATE, URINE NEG. ng/mL (NEG <=2000); PHENCYCLIDINE SCREEN,URINE NEG. ng/mL (NEG <=25)
[2019-05-23 03:26] LABS: RBC,URINE 0-5 /HPF (0-5); WBC,URINE 0-5 /HPF (0-5); YEAST,URINE Few /HPF (None Seen)
[2019-05-23] MEDS ORDERED: VANCOMYCIN PER PHARMACY MC PRN (03:40)
[2019-05-23] MEDS ORDERED: hydrALAZINE 20 MG/ML VIAL IVP PRN (03:40)
--- NOTE | 2019-05-23 03:55 | NUR ---
RECEIVED BESIDE REPORT FROM ED NURSE TITUS. PATIENT IS ON BIPAP. IV ACCESS ON LEFT AC 20 GAUGE AND RIGHT AC 20 GAUGE, PATENT AND INTACT. BED IN LOW, SAFETY MEASURES IN PLACE. ON CONTACT PRECAUTIONS, Addendum: 05/23/19 at 0640 by Christa Partida RN CONTINUE- INITIAL VITAL SIGNS DONE. INITIAL ASSESSMENT DONE. LEFT LEG CELLULITIS NOTED. MRSA SWAB DONE AND SENT TO LAB. BOARD UPDATED. PATIENT ORIENTED TO ROOM. PATIENT CHANGED TO GOWN. CALL LIGHT PLACED WITHIN PATIENT REACH. WILL CONTINUE TO MONITOR PATIENT.
--- NOTE | 2019-05-23 03:55 | NUR ---
Patient will be admitted to care of DR DANG. Admited to TELE. Will go to room 114. Belongings list completed. Report to BALTAZAR ELIZABETH
[2019-05-23] MEDS ORDERED: NACL 0.9% 1,000 ML IV SCH (05:00)
--- NOTE | 2019-05-23 05:05 | NUR ---
PT WAS TAKEN OFF FROM BiPAP TO 3L NC WITH SP02 96% AT THIS TIME. NO RESPIRATORY DISTRESS NOTED AT THIS TIME. WILL CONTINUE TO MONITOR.
--- NOTE | 2019-05-23 05:48 | NUR ---
Note tony in ED - 05/23/19 at 0549 by ROGELIO Patient will be admitted to care of DR DANG. Admited to TELE. Will go to room 114. Belongings list completed. Report to BALTAZAR ELIZABETH.
[2019-05-23 06:17] VITALS: BP 125/83
--- NOTE | 2019-05-23 06:52 | NUR ---
PATIENT IN STABLE CONDITION. WILL ENDORSE TO AM SHIFT NURSE FOR CONTINUITY OF CARE.
[2019-05-23] MEDS ORDERED: ALBUTEROL SULFATE/IPRATROPIU 3 ML SOL IH SCH (07:00)
--- NOTE | 2019-05-23 07:20 | NUR ---
PT IS ON ROOM AIR REFUSES HHN , O2, AND VITALS AT THIS TIME
--- NOTE | 2019-05-23 07:32 | NUR ---
SHIFT REPORT RECEIVED FROM WAITER WAITRESS NURSE .PT IS IN BED. AWAKE AND ALERT AND RESPONDING. NO COMPLAINS OF PAIN AT THIS TIME. CALL LIGHT IN REACH.
[2019-05-23] MEDS ORDERED: FERROUS SULFATE 325 MG TABEC PO SCH (08:00)
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
[2019-05-23] MEDS ORDERED: FUROSEMIDE 40 MG/4 ML VIAL IVP SCH (09:00)
[2019-05-23] MEDS ORDERED: SODIUM FERRIC GLUCONATE 125 MG in NACL 0.9% 100 ML IV ONE (09:00)
[2019-05-23] MEDS ORDERED: NICOTINE TRANSD SYS 7 MG/24 HR PATCH TD SCH (09:00)
[2019-05-23] MEDS ORDERED: ATORVASTATIN 20 MG TAB PO SCH (09:00)
[2019-05-23] MEDS ORDERED: CARVEDILOL 6.25 MG TAB PO SCH (09:00)
[2019-05-23] MEDS ORDERED: FLUCONAZOLE 100 MG/NS PREMIX 50 ML IV ONE (09:00)
[2019-05-24] MEDS ORDERED: LEVOFLOXACIN 500 MG/D5W PREMIX 100 ML IV SCH
--- NOTE | 2019-05-24 08:31 | NUR ---
WOUND CONSULT NOT DONE. PATIENT LEFT AMA.
== END 2019-05-23 08:25 | disposition left against medical advice (07) | DRG 177 ==
LOC: MED 01:14 → MTU 02:38
PROVIDERS: ADMIT General Practice; ATTEND General Practice
PROC: 5A09357 Assistance with Respiratory Ventilation, Less than 24 Consecutive Hours, Continuous Positive Airway Pressure (ICD-10-PCS; principal; 2019-05-23)
DX: J69.0 Pneumonitis due to inhalation of food and vomit (principal); E43 Unspecified severe protein-calorie malnutrition; J96.01 Acute respiratory failure with hypoxia; I50.43 Acute on chronic combined systolic (congestive) and diastolic (congestive) heart failure; E87.1 Hypo-osmolality and hyponatremia; L97.829 Non-pressure chronic ulcer of other part of left lower leg with unspecified severity; L03.90 Cellulitis, unspecified; I11.0 Hypertensive heart disease with heart failure; I48.91 Unspecified atrial fibrillation; F17.210 Nicotine dependence, cigarettes, uncomplicated; E78.5 Hyperlipidemia, unspecified; D64.9 Anemia, unspecified; I83.028 Varicose veins of left lower extremity with ulcer other part of lower leg; Z53.29 Procedure and treatment not carried out because of patient's decision for other reasons; F15.10 Other stimulant abuse, uncomplicated; Z79.899 Other long term (current) drug therapy; Z91.14 Patient's other noncompliance with medication regimen; Z68.33 Body mass index [BMI] 33.0-33.9, adult
CPT/HCPCS: 36415; 36600; 71045; 80053; 80305; 81001; 82150; 82607; 82728; 82746; 82803; 83036; 83540; 83605; 83690; 83735; 83880; 84100; 84443; 84484; 85025; 85045; 85610; 85730; 87040; 87070; 87075; 87081; 87086; 87186; 87205; 93005; 96365; 96375; 99291; J1450; J1940; J1956; J2270; J2916; J3370; J7030; J7620; Q0092

== ENCOUNTER 2019-06-03 05:39 | Inpatient (IN) | payer OTHER ==
[~2019-06-03] VITALS: Ht 177.8 cm; Wt 100.2 kg
--- NOTE | 2019-06-03 05:39 | NUR ---
PT POPEYE ALS. TAKEN TO BED 10
--- NOTE | 2019-06-03 05:43 | NUR ---
Respiratory Therapist at bedside for respiratory intervention.
[2019-06-03 05:46] VITALS: BP 145/62
--- NOTE | 2019-06-03 05:49 | NUR ---
Dr. Mann examining patient.
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
--- NOTE | 2019-06-03 06:15 | NUR ---
XRAY AT BEDSIDE.
--- NOTE | 2019-06-03 06:24 | NUR ---
EKG PERFORMED AT BEDSIDE
[2019-06-03 06:29] LABS: BASOPHILS # (AUTO) 0.1 K/uL (0.00-0.22); BASOPHILS % (AUTO) 0.9 % (0.0-2.0); EOSINOPHILS % (AUTO) 0.1 % (0.0-4.0); HEMATOCRIT 26.7 % (36-52); HEMOGLOBIN 7.9 g/dL (12.0-18.0); LYMPHOCYTES # (AUTO) 2.2 K/uL (2.0-11.5); LYMPHOCYTES % (AUTO) 16.8 % (20.5-51.1); MEAN CORPUSCULAR HEMOGLOBIN 24 pg (27-31); MEAN CORPUSCULAR HGB CONC 30 g/dL (33-37); MEAN CORPUSCULAR VOLUME 80.4 fL (80-94); MONOCYTES # (AUTO) 2.3 K/uL (0.8-1.0); MONOCYTES % (AUTO) 17.6 % (1.7-9.3); NEUTROPHILS # (AUTO) 8.3 K/uL (1.8-7.7); NEUTROPHILS % (AUTO) 64.6 % (42.2-75.2); PLATELET COUNT (AUTO) 372 K/uL (140-450); RED BLOOD CELL COUNT(AUTO) 3.32 MIL/uL (4.20-6.10); RED CELL DISTRIBUTION WIDTH 22.6 % (11.6-13.7); WHITE BLOOD COUNT (AUTO) 12.9 K/uL (4.8-10.8)
[2019-06-03 06:47] LABS: ANION GAP 10.8 (8-16); CARBON DIOXIDE 31.4 mmol/L (21-32); CREATININE 0.9 mg/dL (0.7-1.3); POTASSIUM 4.2 mmol/L (3.5-5.1)
[2019-06-03 06:54] LABS: ALBUMIN 2.4 g/dL (3.4-5.0); TOTAL BILIRUBIN 0.6 mg/dL (0.0-1.0)
[2019-06-03] MEDS ORDERED: FUROSEMIDE 40 MG/4 ML VIAL IVP SCH (07:05)
[2019-06-03] MEDS ORDERED: ONDANSETRON 4 MG/2 ML VIAL IM/IVP PRN (07:10)
[2019-06-03] MEDS ORDERED: ACETAMINOPHEN 325 MG TAB PO PRN (07:10)
[2019-06-03] MEDS ORDERED: DOCUSATE SODIUM 100 MG GELCAP PO PRN (07:10)
--- NOTE | 2019-06-03 07:10 | NUR ---
PT CRYING STATING "I'M IN SO MUCH PAIN". DR. MANTILLA AT BEDSIDE. ORDERS FOR MORPHINE RECEIVED.
--- NOTE | 2019-06-03 07:14 | NUR ---
Dr. Mann examining patient.
[2019-06-03] MEDS ORDERED: MORPHINE SULFATE 4 MG/ML SYR IVP ONE (07:15)
[2019-06-03 07:17] LABS: PROTHROMBIN TIME 12.6 secs (10.8-13.4)
--- NOTE | 2019-06-03 07:25 | NUR ---
MEDICATED WITH 20 MG IVP LASIX AND 4 MG IVP MORPHINE. WILL REASSESS.
--- NOTE | 2019-06-03 07:29 | NUR ---
REPORT GIVEN TO GLENN VILLATORO. TRANSFER OF CARE AT THIS TIME.
[2019-06-03 08:15] VITALS: BP 145/59
--- NOTE | 2019-06-03 08:15 | NUR ---
RECEIVED REPORT FROM ER NURSE IRVING FOR CONTINUITY OF CARE. PT IS AAOX4, ABLE TO MAKE NEEDS KNOWN. PT IS ON O2 2L VIA NC. PT ABLE TO AMBULATE WITH ASSISTANCE AND WITH JUAN AT BEDSIDE. PT HAS R AC 22G TO INFUSE NS @ 10ML/HR. PT MRSA TAKEN. WOUND PICTURES TAKEN IN ER. WOUND CONSULT TO BE STARTED BY RESIDENT DISCUSSED POC WITH PT AND PT VERBALIZED UNDERSTANDING. ALL OTHER NEEDS MET. WILL ROUND FREQUENTLY ON PT. BED IN LOW POSITION, CALL LIGHT WITHIN REACH.
--- NOTE | 2019-06-03 08:15 | NUR ---
Patient will be admitted to care of DR DANG. Admited to TELE. Will go to room 128B. Belongings list completed. Report to GLENN GOYAL.
[2019-06-03 08:52] LABS: CHOL/HDL RATIO 2.3 (1-4.5); MAGNESIUM 1.7 mg/dL (1.8-2.4); PHOSPHORUS 1.9 mg/dL (2.5-4.9)
[2019-06-03 09:08] LABS: CARBON DIOXIDE 30.7 mmol/L (21-32); CREATININE 0.9 mg/dL (0.7-1.3); POTASSIUM 3.7 mmol/L (3.5-5.1)
[2019-06-03] MEDS: FUROSEMIDE 40 MG/4 ML VIAL IVP SCH ×3 (09:35→21:25)
[2019-06-03] MEDS: LORATADINE 10 MG TAB PO SCH (09:35)
[2019-06-03] MEDS: CARVEDILOL 6.25 MG TAB PO SCH ×2 (09:35→20:41)
[2019-06-03] MEDS: NACL 0.9% 1,000 ML IV SCH (09:35)
[2019-06-03] MEDS: PANTOPRAZOLE 40 MG TABEC PO SCH (09:36)
--- NOTE | 2019-06-03 09:45 | NUR ---
ADMINISTERED MORNING MEDS TO PT. PT TOLERATED WELL. ALL NEEDS MET.
[2019-06-03] MEDS: HYDROcodone/APAP 7.5/325 MG 1 TAB PO PRN ×2 (09:49→20:41)
--- NOTE | 2019-06-03 11:20 | NUR ---
PT RESTING IN BED. PT NOT BEING COOPERATIVE WITH TELE BOX. HE KEEPS REMOVING LEADS. WILL CONTINUE TO MONITOR PT AND REPLACE LEADS.
[2019-06-03 11:30] LABS: APPEARANCE,URINE CLEAR (CLEAR); BILIRUBIN,URINE NEGATIVE (NEGATIVE); BLOOD, URINE NEGATIVE (NEGATIVE); COLOR,URINE YELLOW (YELLOW); LEUKOCYTE ESTERASE ,URINE NEGATIVE (NEGATIVE); NITRITE, URINE NEGATIVE (NEGATIVE); PH,URINE 6.5 (5.0-9.0); UGLUCOSE NEGATIVE (NEGATIVE)
[2019-06-03 11:39] LABS: BARBITURATE, URINE NEG. ng/ml (NEG <=200); BENZODIAZEPINE, URINE NEG. ng/mL (NEG <=200); CANNABINOID, URINE NEG. ng/mL (NEG <=50); COCAINE, URINE NEG. ng/mL (NEG <=300); OPIATE, URINE POS. ng/mL (NEG <=2000); PHENCYCLIDINE SCREEN,URINE NEG. ng/mL (NEG <=25)
[2019-06-03] MEDS: LEVOFLOXACIN 500 MG/D5W PREMIX 100 ML IV SCH (12:55)
--- NOTE | 2019-06-03 13:41 | NUR ---
PT ASLEEP. ALL NEEDS MET.
--- NOTE | 2019-06-03 15:24 | NUR ---
PT ASLEEP IN BED. PT NOT COMPLYING WITH LEAVING NC ON FOR O2 SUPPORT. WILL CONTINUE TO ROUND ON PT.
--- NOTE | 2019-06-03 16:38 | NUR ---
Pulmonary Disease Specialist Note: I faxed inquiries to [facility], [facility], [facility], and [facility]. Padmaja from [facility] came to evaluate/meet patient. Per Padmaja, their health and wellness director (ANTHONY) has concerns regarding his discharge plan, therefore, they are not able to accept patient. Per Catalino from [facility] patient has been accepted and may go to room 216 bed B upon discharge, made aware. Addendum: 06/03/19 at 3521 by Shasha KELLY I met with patient at bedside. I informed him [facility] patient has been accepted. He is in agreement with going to [facility] upon discharge.
--- NOTE | 2019-06-03 17:21 | NUR ---
PT ASLEEP. ALL NEEDS MET. WILL CONTINUE TO ROUND ON PT.
--- NOTE | 2019-06-03 18:17 | NUR ---
PT REFUSING ALL MEDS AND CARE. PT IS NOT COMPLIANT WITH TELE MONITOR BOX. PT KEEPS TAKING BOX AND LEADS OFF SO HAT BRIM AND CROWN LAMINATING OPERATOR IS UNABLE TO MONITOR PT PROPERLY. I EXPLAINED IMPORTANCE OF TELE MONITOR TO PT BUT HE DOES NOT WANT TO COOPERATE. AWARE.
--- NOTE | 2019-06-03 19:23 | NUR ---
ENDORSED PT TO DREDGE RUNNER FOR CONTINUITY OF CARE. PT IN STABLE CONDITION AT THIS TIME.
--- NOTE | 2019-06-03 19:25 | NUR ---
RECEIVED PT SLEEPING, NO SIGNS OF SOB OR PAIN, IVF INFUSING WELL, SAFETY MEASURES IN PLACE, CALL LIGHT WITHIN REACH.
[2019-06-03 20:00] VITALS: BP 134/48
--- NOTE | 2019-06-03 20:45 | NUR ---
PT EASILY AROUSABLE, PT GOT UPSET WHEN AWAKENED, PT AT FIRST REFUSED VITAL SIGNS TO BE TAKEN, RISK AND BENEFITS EXPLAINED, AMENABLE WITH VITAL SIGNS BUT REFUSED TO WEAR THE TELE MONITOR, 'S ALREADY AWARE, PT COMPLAINING OF LEFT LEG PAIN, DRESSING DRY AND INTACT, MEDICATED WITH NORCO AND DUE BP MED TAKEN, REFUSED HEPARIN SUB-Q, RISK AND BENEFITS EXPLAINED, STILL REFUSING, ALL NEEDS ATTENDED.
--- NOTE | 2019-06-03 21:25 | NUR ---
PT CALLED COMPLAINING OF DIFFICULTY OF BREATHING, INTERMITTENT MOIST COUGH NOTED, ABLE TO SPEAK IN COMPLETE SENTENCE, SAT-97% ON O2 3L NC, DIMINISHED LUNG SOUNDS, HOB ELEVATED TO HIGH FOWLERS POSITION, PAGED DR MARIE, INQUIRE ABOUT LASIX DOSE, PT REFUSED THE 1700 DOES TODAY, STATED TO GIVE IT IF PT IS WILLING, PT IS AGREEABLE TO GET LASIX, LASIX 40MG IVP GIVEN, MONITORED CLOSELY.
[2019-06-04] VITALS: BP 127/54
--- NOTE | 2019-06-04 | NUR ---
PT SLEEPING, EASILY AROUSABLE, VITAL SIGNS STABLE, DENIES PAIN, NO SOB NOTED, PT REQUESTING FOR SNACK, SANDWICH PROVIDED, PT AMENABLE WITH TELE MONITORING, IVF INFUSING WELL, CONTINUE TO MONITOR CLOSELY.
[2019-06-04] MEDS: HYDROcodone/APAP 7.5/325 MG 1 TAB PO PRN ×2 (02:03→08:18)
[2019-06-04 04:00] VITALS: BP 142/49
--- NOTE | 2019-06-04 04:00 | NUR ---
PT SLEEPING, EASILY AROUSABLE, DENIES ANY PAIN, NO SOB NOTED, IVF INFUSING WELL, MONITORED CLOSELY.
[2019-06-04 05:47] LABS: BASOPHILS # (AUTO) 0.1 K/uL (0.00-0.22); BASOPHILS % (AUTO) 0.5 % (0.0-2.0); EOSINOPHILS % (AUTO) 0.4 % (0.0-4.0); HEMATOCRIT 24.9 % (36-52); HEMOGLOBIN 7.6 g/dL (12.0-18.0); LYMPHOCYTES % (AUTO) 18.6 % (20.5-51.1); MEAN CORPUSCULAR HEMOGLOBIN 25 pg (27-31); MEAN CORPUSCULAR HGB CONC 31 g/dL (33-37); MEAN CORPUSCULAR VOLUME 81.2 fL (80-94); MONOCYTES # (AUTO) 1.8 K/uL (0.8-1.0); MONOCYTES % (AUTO) 17.2 % (1.7-9.3); NEUTROPHILS # (AUTO) 6.7 K/uL (1.8-7.7); NEUTROPHILS % (AUTO) 63.3 % (42.2-75.2); PLATELET COUNT (AUTO) 349 K/uL (140-450); RED BLOOD CELL COUNT(AUTO) 3.07 MIL/uL (4.20-6.10); RED CELL DISTRIBUTION WIDTH 21.9 % (11.6-13.7); WHITE BLOOD COUNT (AUTO) 10.6 K/uL (4.8-10.8)
[2019-06-04 05:51] LABS: CREATININE 1.1 mg/dL (0.6-1.3); POTASSIUM 3.5 mmol/L (3.5-5.1)
[2019-06-04 05:55] LABS: MAGNESIUM 1.5 mg/dL (1.8-2.4); PHOSPHORUS 2.5 mg/dL (2.5-4.9)
[2019-06-04 06:03] LABS: ANION GAP 7.3 (8-16); CARBON DIOXIDE 34.2 mmol/L (21-32)
[2019-06-04] MEDS: NACL 0.9% 1,000 ML IV SCH (07:07)
--- NOTE | 2019-06-04 07:25 | NUR ---
PT AWAKE, NO SIGNS OF DISTRESS, REPORT GIVEN TO GLENN BARAJAS FOR CONTINUITY OF CARE.
--- NOTE | 2019-06-04 07:26 | NUR ---
REPORT RECEIVED FROM HOSPICE COMMUNITY LIAISON NURSE FOR CONTINUATION OF CARE. PATIENT IS AAOX3. HX OF SOB, CHF EXACERBATION. BED IS IN LOW POSITION, CALL LIGHT ON AND WITHIN REACH, EDUCATED ON THE IMPORTANCE OF REPORTING EARLY SIGNS OF DYSPNEA, PATIENT VERBALIZED UNDERSTANDING. WILL CONTINUE TO MONITOR.
[2019-06-04 08:00] VITALS: BP 138/53
[2019-06-04] MEDS: PANTOPRAZOLE 40 MG TABEC PO SCH (08:18)
[2019-06-04] MEDS: CARVEDILOL 6.25 MG TAB PO SCH ×2 (08:18→20:46)
[2019-06-04] MEDS: LORATADINE 10 MG TAB PO SCH (08:18)
[2019-06-04] MEDS: FUROSEMIDE 40 MG/4 ML VIAL IVP SCH ×2 (08:19→18:22)
[2019-06-04] MEDS: LACTOBACILLUS RHAMNOSUS GG 1 EACH CAP PO SCH (08:19)
--- NOTE | 2019-06-04 08:50 | NUR ---
PATIENT HAS BEEN SCREENED AND CATEGORIZED HIGH NUTRITION RISK. PATIENT WILL BE SEEN WITHIN 1-2 DAYS OF ADMISSION. 06/04/[address]
[2019-06-04] MEDS ORDERED: MAGNESIUM OXIDE 400 MG TAB PO SCH (10:00)
--- NOTE | 2019-06-04 10:00 | NUR ---
MAGNESIUM LEVEL 1.[address] KENT AND DR. KENT ORDERED 1 DOSE OF MAG RIDER AND 800 MG MAG OXIDE PO. PATIENT IS AAOX3. HE REPORTS THE URGE TO URINATE DUE TO LASIX AND HAS HAD 1 SOLID MEDIUM SIZED BOWEL MOVEMENT IN THE BEDSIDE COMMODE. PATIENT HAS GENERALIZED WEAKNESS AND QUICK TO FATIGUE UPON EXERTION. PAIN MEDICATION ADMINISTERED FOR GENERALIZED PAIN. BED IS IN LOW POSITION, CALL LIGHT ON AND WITHIN REACH.
[2019-06-04] MEDS ORDERED: MAG SULF 2000 MG/WATER PREMIX 50 ML IV SCH (10:30)
[2019-06-04 12:00] VITALS: BP 138/45
--- NOTE | 2019-06-04 12:07 | NUR ---
DISCHARGE PLANNING: A 69 Y/O MALE PATIENT FROM HOME, WHO CAME IN DUE TO SOB X 1 DAY. PAST MEDICAL HISTORY INCLUDE CHF, A FIB, HTN AND HYPERLIPIDEMIA. CURRENT LABS INCLUDE WBC 10.6, H/H 7.6/24.9, NA/K 141/3.5, BUN/CREA 14/1.1 AND MAG 1.5. MRSA NARES, URINE AND BLOOD C/S PENDING. CARDIO CONSULT IN PLACE. ON LASIX IV. DC PLAN TO HOME ONCE STABLE.
[2019-06-04] MEDS ORDERED: ALBUTEROL SULFATE/IPRATROPIU 3 ML SOL IH PRN (12:30)
--- NOTE | 2019-06-04 12:30 | NUR ---
PATIENT HAD ANOTHER SOLID BOWEL MOVEMENT IN THE BEDSIDE COMMODE, HE WAS GIVEN ASSISTANCE OFF THE COMMODE. CHUCKS CHANGED WITH THE ASSISTANCE OF CASH APPLICATIONS COORDINATOR'S. WILL CONTINUE TO MONITOR FOR SAFETY.
[2019-06-04] MEDS: LEVOFLOXACIN 500 MG/D5W PREMIX 100 ML IV SCH (13:15)
--- NOTE | 2019-06-04 14:00 | NUR ---
PATIENT IS RESTING IN BED, LUNCH WAS TOLERATED WELL. MAG RIDER FINISHED RUNNING. 2 L O2 NC. NO COMPLAINTS OF SOB. OBSERVED CHEST RISE AND FALL. WILL CONTINUE TO MONITOR.
--- NOTE | 2019-06-04 14:07 | NUR ---
06/04/19 RD INITIAL ASSESSMENT COMPLETED PLEASE REFER TO NUTRITION ASSESSMENT UNDER CARE ACTIVITY FOR ESTIMATED NUTRITIONAL NEEDS. 1. CONTINUE CARDIAC DIET TOLERATED 2. IF PO INTAKE <75% RECOMMEND ENSURE ONCE DAILY 3. RD TO FOLLOW-UP 3-5 DAYS, MODERATE RISK WYATT GONSALVES, RD
[2019-06-04 16:00] VITALS: BP 140/75
--- NOTE | 2019-06-04 16:30 | NUR ---
PATIENT IS SLEEPING IN BED, OBSERVED CHEST RISE AND FALL. BED IN LOW POSITION, CALL LIGHT ON AND WITHIN REACH. WILL CONTINUE TO MONITOR.
[2019-06-04] MEDS ORDERED: ALBUTEROL SULFATE/IPRATROPIU 3 ML SOL IH SCH (19:00)
--- NOTE | 2019-06-04 19:05 | NUR ---
BEDSIDE SHIFT REPORT GIVEN TO ONCOMING NET DEVELOPER CONTRACT NURSE FOR CONTINUATION OF CARE.
--- NOTE | 2019-06-04 19:10 | NUR ---
RECEIVED PATIENT IN STABLE CONDITION FROM AM SHIFT FOR CONTINUITY OF CARE. MEDSUR PATIENT. RESIDENT IS RESTING WELL IN BED, RESPIRATIONS EVEN, UNLABORED. IV SITE TO RIGHT AC 22G IV FLUIDS INFUSING WELL. NO C/O PAIN. NO S/SX ACUTE DISTRESS. CALL LIGHT WITHIN REACH. WILL CONTINUE TO MONITOR.
[2019-06-04 20:00] VITALS: BP 135/49
--- NOTE | 2019-06-04 21:10 | NUR ---
PATIENT CONTINUES IN STABLE CONDITION. NO C/O PAIN. NO S/SX ACUTE DISTRESS. PATIENT ASSISTED WITH PERICARE BY STAFF. CALL LIGHT WITHIN REACH. WILL CONTINUE TO MONITOR.
--- NOTE | 2019-06-04 23:30 | NUR ---
PATIENT RESTING COMFORTABLY IN BED. REQUESTED FOR SNACKS AND GAVE JELLO AND PUDDING TO PATIENT CONTINUES IN STABLE CONDITION. NO C/O PAIN. NO S/SX ACUTE DISTRESS. CALL LIGHT WITHIN REACH. WILL CONTINUE TO MONITOR.
[2019-06-05] VITALS: BP 115/48
[2019-06-05] MEDS: HYDROcodone/APAP 7.5/325 MG 1 TAB PO PRN ×2 (01:34→10:38)
--- NOTE | 2019-06-05 01:34 | NUR ---
PATIENT C/O ACHING LEG PAIN 10/12. MEDICATED ORDERED. CALL LIGHT WITHIN REACH. WILL CONTINUE TO MONITOR.
--- NOTE | 2019-06-05 03:08 | NUR ---
MADE ROUNDS. PATIENT CONTINUES IN STABLE CONDITION. NO C/O PAIN. NO S/SX ACUTE DISTRESS. CALL LIGHT WITHIN REACH. WILL CONTINUE TO MONITOR.
[2019-06-05] MEDS: MORPHINE SULFATE 2 MG/ML SYR IVP PRN ×3 (03:43→14:51)
[2019-06-05 04:00] VITALS: BP 117/64
--- NOTE | 2019-06-05 05:23 | NUR ---
PATIENT AWAKE IN BED AND IN STABLE CONDITION. NO C/O PAIN . NO S/SX ACUTE DISTRESS. CALL LIGHT WITHIN REACH. WILL CONTINUE TO MONITOR.
[2019-06-05 06:07] LABS: T4 (THYROXINE) 5.8 ug/dL (4.5-12.0)
[2019-06-05 07:04] LABS: BASOPHILS # (AUTO) 0.1 K/uL (0.00-0.22); BASOPHILS % (AUTO) 0.8 % (0.0-2.0); EOSINOPHILS % (AUTO) 0.2 % (0.0-4.0); HEMATOCRIT 24.1 % (36-52); HEMOGLOBIN 7.3 g/dL (12.0-18.0); LYMPHOCYTES # (AUTO) 2.5 K/uL (2.0-11.5); LYMPHOCYTES % (AUTO) 23.5 % (20.5-51.1); MEAN CORPUSCULAR HEMOGLOBIN 25 pg (27-31); MEAN CORPUSCULAR HGB CONC 30 g/dL (33-37); MEAN CORPUSCULAR VOLUME 81.7 fL (80-94); MONOCYTES # (AUTO) 1.7 K/uL (0.8-1.0); MONOCYTES % (AUTO) 16.1 % (1.7-9.3); NEUTROPHILS # (AUTO) 6.3 K/uL (1.8-7.7); NEUTROPHILS % (AUTO) 59.4 % (42.2-75.2); PLATELET COUNT (AUTO) 338 K/uL (140-450); RED BLOOD CELL COUNT(AUTO) 2.95 MIL/uL (4.20-6.10); RED CELL DISTRIBUTION WIDTH 21.8 % (11.6-13.7); WHITE BLOOD COUNT (AUTO) 10.6 K/uL (4.8-10.8)
[2019-06-05] MEDS: NACL 0.9% 1,000 ML IV SCH (07:07)
--- NOTE | 2019-06-05 07:16 | NUR ---
ENDORSED PATIENT IN STABLE CONDITION TO AM SHIFT FOR CONTINUITY OF CARE.
--- NOTE | 2019-06-05 07:17 | NUR ---
Received report from pm nurse Cleo. Pt resting in bed, awake, no c/o discomfort, respirations even & nonlabored in room air. Right AC 22G IV intact with ongoing NS @ 10ml/h. Call light within reach.
[2019-06-05 07:29] LABS: ANION GAP 7.3 (8-16); CREATININE 1.1 mg/dL (0.6-1.3); POTASSIUM 4.3 mmol/L (3.5-5.1)
[2019-06-05 07:41] LABS: MAGNESIUM 2.1 mg/dL (1.8-2.4); PHOSPHORUS 2.8 mg/dL (2.5-4.9)
[2019-06-05 08:00] VITALS: BP 127/57
[2019-06-05] MEDS: FUROSEMIDE 40 MG/4 ML VIAL IVP SCH (08:42)
[2019-06-05] MEDS: LACTOBACILLUS RHAMNOSUS GG 1 EACH CAP PO SCH (08:42)
[2019-06-05] MEDS: LORATADINE 10 MG TAB PO SCH (08:43)
[2019-06-05] MEDS: CARVEDILOL 6.25 MG TAB PO SCH (08:43)
[2019-06-05] MEDS ORDERED: LEVO500T98 IV (08:50)
--- NOTE | 2019-06-05 10:05 | NUR ---
SPOKE WITH CLAUDIO CHARGE NURSE AT [facility] REGARDING PT'S DISCHARGE. PER CLAUDIO, SHE NEEDS TO TEXT THEIR PRINTING PRESSMAN FIRST AND WILL CALL ME BACK. DR. BILLINGS AND TACOS-RN MADE AWARE.
[2019-06-05] MEDS ORDERED: DEXT100S62 IV (10:31)
--- NOTE | 2019-06-05 10:43 | NUR ---
MATTHEW TRANSFUSION NURSE FROM [facility] ([phone]) CALLED BACK, PT IS GOING TO ROOM 216-A, DR. WORKMAN ACCEPTING DOCTOR. CALLED [facility] AND [facility], TO SET UP TRANSPORTATION, BOTH STATED THEY DON'T ACCEPT MEDICARE PART A. SET UP TRANSPORTATION WITH [facility], SPOKE WITH NATASHA, EARLIEST ETA IS AT 3 PM TODAY, TACOS-GLENN ASSIGNED NOTIFIED.
--- NOTE | 2019-06-05 11:10 | NUR ---
Left lower leg wound care provided per Dr Campbell. Site cleansed with NS, pat dry, packed lightly with calcium alginate & wrapped with kerlix. Pt grace tx procedure well, with intermittent c/o 3/10 pain to wound during tx. Per pt, pain is tolerable.
--- NOTE | 2019-06-05 11:37 | NUR ---
Telephone report given to Svetlana ELIZABETH from [facility].
--- NOTE | 2019-06-05 11:50 | NUR ---
Spoke to Dex (pt's primary contact) on the phone & notified of discharge plan to [facility]. Verbalized understanding and agree with plan.
[2019-06-05 12:00] VITALS: BP 136/50
[2019-06-05] MEDS: LEVOFLOXACIN 500 MG/D5W PREMIX 100 ML IV SCH (12:01)
--- NOTE | 2019-06-05 15:00 | NUR ---
Pt verbalized that he doesn't want to leave hospital today, and wants to go to [facility] tomorrow instead due "not feeling well." Asked pt to describe, pt replies "I don't know, I just don't want to move today. I will do it tomorrow." Explained to pt that [facility] will have skilled nurses available / who will monitor and provide care. Dr Campbell notified and will speak with pt.
--- NOTE | 2019-06-05 15:15 | NUR ---
Per Dr Campbell, pt wants to go home against medical advice. Pt insistent on going home and doesn't want to go to SNF. Pt verbalizes understanding of risks for leaving AMA. Right AC IV removed, site covered with dry gauze and tape. Name band removed. Dex, pt's primary contact, notified on the phone and states he is coming to tile picker pt.
--- NOTE | 2019-06-05 15:15 | NUR ---
[facility] SPOKE WITH LAURENCE FROM [facility], TRANSPORT CANCELLED.
[2019-06-05] MEDS ORDERED: LEVO750T2 PO (15:18)
[2019-06-05] MEDS ORDERED: LACT-2 (15:19)
--- NOTE | 2019-06-05 15:45 | NUR ---
Pt left against medical advice at this time. Left unit via wheelchair, accompanied by friend Dex. Pt able to amb from wheelchair to car with standby assist. Respirations even & nonlabored. All belongings with pt upon departure.
--- NOTE | 2019-06-07 09:04 | NUR ---
Wound care evaluation not done, pt. left AMA.
== END 2019-06-05 15:35 | disposition left against medical advice (07) | DRG 291 ==
LOC: MED 05:39 → MMU 07:07
PROVIDERS: ADMIT General Practice; ATTEND General Practice
DX: I11.0 Hypertensive heart disease with heart failure (principal); R65.11 Systemic inflammatory response syndrome (SIRS) of non-infectious origin with acute organ dysfunction; E43 Unspecified severe protein-calorie malnutrition; E87.2 Acidosis; I48.20 Chronic atrial fibrillation, unspecified; E78.5 Hyperlipidemia, unspecified; F17.210 Nicotine dependence, cigarettes, uncomplicated; E83.42 Hypomagnesemia; F15.10 Other stimulant abuse, uncomplicated; E66.9 Obesity, unspecified; L29.9 Pruritus, unspecified; I87.2 Venous insufficiency (chronic) (peripheral); D64.9 Anemia, unspecified; I50.43 Acute on chronic combined systolic (congestive) and diastolic (congestive) heart failure; Z68.31 Body mass index [BMI] 31.0-31.9, adult; Z79.899 Other long term (current) drug therapy; Z99.81 Dependence on supplemental oxygen; Z87.828 Personal history of other (healed) physical injury and trauma; Z90.49 Acquired absence of other specified parts of digestive tract; Z91.19 Patient's noncompliance with other medical treatment and regimen
CPT/HCPCS: 36415; 36600; 71045; 80048; 80053; 80305; 81003; 82140; 82150; 82550; 82803; 83036; 83605; 83690; 83735; 83880; 84100; 84436; 84443; 84484; 85025; 85610; 85730; 87040; 87081; 87086; 87804; 93005; 96374; 96375; 97112; 97116; 97161-GP; 99285; J1644; J1940; J1956; J2270; J3475; J7030; Q0092